=== PATIENT | male | born 1935 | race Caucasian/White ===

== ENCOUNTER 2016-10-18 09:10 | Outpatient (CLI) | payer MEDICARE, OTHER | END 2016-10-18 09:11 | disposition home or self-care (01) | DX: I48.0 Paroxysmal atrial fibrillation (principal); I51.7 Cardiomegaly; I25.2 Old myocardial infarction; I10 Essential (primary) hypertension; E78.5 Hyperlipidemia, unspecified ==

== ENCOUNTER 2016-10-18 10:14 | Outpatient (CLI) | payer MEDICARE, OTHER | END 2016-10-18 10:15 | disposition home or self-care (01) | DX: Z00.8 Encounter for other general examination (principal) ==

== ENCOUNTER 2016-11-01 09:27 | Outpatient (CLI) | payer MEDICARE, OTHER | END 2016-11-01 09:28 | disposition home or self-care (01) | DX: I48.91 Unspecified atrial fibrillation (principal); Z79.01 Long term (current) use of anticoagulants ==

== ENCOUNTER 2016-11-29 09:16 | Outpatient (CLI) | payer MEDICARE, OTHER | END 2016-11-29 09:17 | disposition home or self-care (01) | DX: I48.91 Unspecified atrial fibrillation (principal); Z79.01 Long term (current) use of anticoagulants ==

== ENCOUNTER 2016-12-27 08:57 | Outpatient (CLI) | payer MEDICARE, OTHER | END 2016-12-27 08:58 | disposition home or self-care (01) | DX: I48.91 Unspecified atrial fibrillation (principal); Z79.01 Long term (current) use of anticoagulants ==

== ENCOUNTER 2017-01-24 11:46 | Outpatient (CLI) | payer MEDICARE, OTHER | END 2017-01-24 11:47 | disposition home or self-care (01) | DX: I48.91 Unspecified atrial fibrillation (principal); Z79.01 Long term (current) use of anticoagulants ==

== ENCOUNTER 2017-02-07 08:51 | Outpatient (CLI) | payer MEDICARE, OTHER | END 2017-02-07 08:52 | disposition home or self-care (01) | LOC: LAB 08:51 | PROVIDERS: ATTEND Internal Medicine | DX: I48.91 Unspecified atrial fibrillation (principal); Z79.01 Long term (current) use of anticoagulants | CPT/HCPCS: 85610 ==

== ENCOUNTER 2017-02-21 10:17 | Outpatient (CLI) | payer MEDICARE, OTHER | END 2017-02-21 10:18 | disposition home or self-care (01) | LOC: LAB 10:17 | PROVIDERS: ATTEND Internal Medicine | DX: I48.91 Unspecified atrial fibrillation (principal) | CPT/HCPCS: 85610 ==

== ENCOUNTER 2017-03-02 09:12 | Outpatient (CLI) | payer MEDICARE, OTHER ==
[2017-03-02 10:54] LABS: PSA TOTAL 4.61 ng/mL (0.000-2.000)
== END 2017-03-02 09:13 | disposition home or self-care (01) ==
LOC: LAB 09:12
PROVIDERS: ATTEND Urology
DX: I48.91 Unspecified atrial fibrillation (principal); R39.11 Hesitancy of micturition; C79.51 Secondary malignant neoplasm of bone; R33.9 Retention of urine, unspecified
CPT/HCPCS: 36415; 84153; 84403; 85610

== ENCOUNTER 2017-03-09 09:05 | Outpatient (CLI) | payer MEDICARE, OTHER | END 2017-03-09 09:06 | disposition home or self-care (01) | LOC: LAB 09:05 | PROVIDERS: ATTEND Internal Medicine | DX: I48.91 Unspecified atrial fibrillation (principal) | CPT/HCPCS: 85610 ==

== ENCOUNTER 2017-03-16 08:56 | Outpatient (CLI) | payer MEDICARE, OTHER | END 2017-03-16 08:57 | disposition home or self-care (01) | LOC: LAB 08:56 | PROVIDERS: ATTEND Internal Medicine | DX: I48.91 Unspecified atrial fibrillation (principal) | CPT/HCPCS: 85610 ==

== ENCOUNTER 2017-03-28 08:53 | Outpatient (CLI) | payer MEDICARE, OTHER | END 2017-03-28 08:54 | disposition home or self-care (01) | DX: E03.9 Hypothyroidism, unspecified (principal) ==

== ENCOUNTER 2017-03-30 09:26 | Outpatient (CLI) | payer MEDICARE, OTHER | END 2017-03-30 09:27 | disposition home or self-care (01) | LOC: LAB 09:26 | PROVIDERS: ATTEND Internal Medicine | DX: I48.91 Unspecified atrial fibrillation (principal) | CPT/HCPCS: 85610 ==

== ENCOUNTER 2017-04-14 10:47 | Outpatient (CLI) | payer MEDICARE, OTHER ==
[2017-04-14] MEDS ORDERED: IOPAMIDOL-300 100 ML VIAL IVP ONE (12:16)
[2017-04-14] MEDS ORDERED: IOPAMIDOL-300 50 ML VIAL PO ONE (12:16)
--- NOTE | 2017-04-14 12:39 | CT Report ---
CT CHEST WITH CONTRAST: 04/14/2017 CLINICAL INDICATION: Metastatic prostate cancer. TECHNIQUE: Axial CT images of the chest were obtained with 100 mL Isovue-[address] intravenously. No prev ious CT is available for comparison. FINDINGS: The heart and great vessels are unremarkable. No hilar or mediastinal lymphadenopathy is seen. The lungs demonstrate mild peripheral fibrosis. No suspicious pulmonary nodule or mass lesion is seen. No effusion or pneumothorax is present. Osseous structures demonstrate degenerative mendieta es. Bone scan would be more sensitive for osseous metastatic disease. IMPRESSION: PERIPHERAL FIBROSIS IN THE LUNGS. NO EVIDENCE OF THORACIC METASTATIC DISEASE. In accordance with CT protocol optimization, one or more of the following dose reduction techniques w ere utilized for this exam: automated exposure control, adjustment of mA and/or KV based on patient size, or use of iterative reconstructive technique. JOB #: [id number] EXT JOB #:[id number]
--- NOTE | 2017-04-14 12:42 | CT Report ---
CT ABDOMEN AND PELVIS WITH CONTRAST: 04/14/2017 CLINICAL INDICATION: Metastatic prostate cancer. TECHNIQUE: Axial CT images of the abdomen and pelvis were obtained with 100 mL Isovue-300 intravenou sly as well as oral contrast. No previous CT is available for comparison. FINDINGS: ABDOMEN: The liver demonstrates a tiny cyst in the right lobe. The spleen, pancreas, kidneys and ad renal glands are unremarkable. No bowel dilatation, free gas, or free fluid is present. No abdomina l adenopathy is present. The gallbladder is not dilated. PELVIS: The pelvic organs appear unremarkable. No pelvic adenopathy or free fluid is present. Osseous structures demonstrate degenerative changes. IMPRESSION: NO DEFINITE EVIDENCE OF METASTATIC DISEASE. In accordance with CT protocol optimization, one or more of the following dose reduction techniques w ere utilized for this exam: automated exposure control, adjustment of mA and/or KV based on patient size, or use of iterative reconstructive technique. JOB #: [id number] EXT JOB #:[id number]
--- NOTE | 2017-04-14 15:56 | Nuclear Medicine Prelim Report ---
Exam: NM Bone Whole Body IMPRESSION: No convincing scintigraphic evidence of skeletal metastatic disease. [facility] SITE ID: [id number]
--- NOTE | 2017-04-14 15:59 | Nuclear Medicine Report ---
EXAM: BONE SCAN EXAM DATE: 04/14/2017 01:22 PM. CLINICAL HISTORY: Metastatic prostate cancer. COMPARISON: Abdomen/pelvis CT, same day. TECHNIQUE: Following the intravenous administration of 30 mCi of technetium 99m MDP and an appropriat e delay, a whole-body scan was performed in anterior and posterior projections. Site-specific spot vi ews of the region of interest were obtained in various projections. FINDINGS: Exam Quality: Normal overall osseous radiotracer uptake. Physiological tracer uptake in bilateral col lecting systems. Skull: No focal uptake. Thorax: No focal lesions in ribs or sternum. Pelvis: There is increased uptake corresponding with enthesopathy at the superior aspect of the left greater trochanter. A right hip prosthesis is present. Spine: There is intensely increased radiotracer uptake corresponding to the region of the left L5-S1 facet. There is a mild degree of increased uptake corresponding with endplate osteophytes in the thor acic and lumbar spine. Other: There is increased uptake in the left knee and left midfoot, typical of degenerative etiology. IMPRESSION: No convincing scintigraphic evidence of skeletal metastatic disease. [facility] Referring Provider Line: [phone] SITE ID: [id number]
== END 2017-04-14 10:48 | disposition home or self-care (01) ==
LOC: DI 10:47
PROVIDERS: ATTEND Internal Medicine Hematology & Oncology
DX: C61 Malignant neoplasm of prostate (principal); J84.10 Pulmonary fibrosis, unspecified
CPT/HCPCS: 71260; 74177; 78306; A9503; Q9967

== ENCOUNTER 2017-04-27 09:12 | Outpatient (CLI) | payer MEDICARE, OTHER | END 2017-04-27 09:13 | disposition home or self-care (01) | LOC: LAB 09:12 | PROVIDERS: ATTEND Internal Medicine | DX: I48.91 Unspecified atrial fibrillation (principal) | CPT/HCPCS: 85610 ==

== ENCOUNTER 2017-05-16 09:52 | Outpatient (CLI) | payer MEDICARE, OTHER | END 2017-05-16 09:53 | disposition home or self-care (01) | LOC: LAB.R 09:52 | PROVIDERS: ATTEND Nurse Practitioner Primary Care | DX: Z79.899 Other long term (current) drug therapy (principal) | CPT/HCPCS: 80162 ==

== ENCOUNTER 2017-05-16 10:17 | Outpatient (CLI) | payer MEDICARE, OTHER ==
--- NOTE | 2017-05-16 17:08 | XRAY Report ---
THREE VIEW LEFT KNEE: 05/16/2017 CLINICAL INDICATION: Pain. Frontal, lateral, sunrise views of the left knee demonstrate moderate osteoarthritis, worse in the la teral femorotibial compartment. There is no evidence of acute fracture. A ligament staple is noted in the medial femoral condyle. IMPRESSION: MODERATE OSTEOARTHRITIS. JOB #: [id number] EXT JOB #:[id number]
== END 2017-05-16 10:18 | disposition home or self-care (01) ==
LOC: DI 10:17
PROVIDERS: ATTEND Nurse Practitioner Primary Care
DX: M25.562 Pain in left knee (principal); M17.12 Unilateral primary osteoarthritis, left knee; Z79.899 Other long term (current) drug therapy
CPT/HCPCS: 80162

== ENCOUNTER 2017-05-23 09:40 | Outpatient (CLI) | payer MEDICARE, OTHER ==
--- NOTE | 2017-05-23 16:09 | MRI Report ---
EXAM: LEFT KNEE MRI WITHOUT CONTRAST EXAM DATE: 05/23/2017 10:45 AM. CLINICAL HISTORY: Knee joint pain and instability of left knee. COMPARISON: Left knee radiography from 05/16/2017. TECHNIQUE: Multiplanar, multisequence T1-weighted and fluid-sensitive sequences of the knee without c ontrast. Other: None. FINDINGS: Bones and Articular Cartilage: Artifact caused by the metallic staple within the medial femoral condy le. Osteophytes at the femoral condyles, tibial plateau, and patella. No acute fracture or bone lesio ns. Possible grade 2-3 chondromalacia at the posterolateral weightbearing aspect of the medial femora l condyle. Grade 3-4 chondromalacia at the central and posterior weightbearing aspects of the lateral femoral condyle. Focal full-thickness articular cartilage fissure at the lateral tibial plateau. Foc al grade 3-4 chondromalacia at the lateral aspect of the lateral tibial plateau. Grade 3-4 chondromal acia at the median ridge of the patella. Grade 3-4 chondromalacia and subchondral osteophytes at the femoral trochlear groove. Grade 3-4 chondromalacia at the lateral trochlear facet. Medial Meniscus: Horizontal tear at the posterior horn. Lateral Meniscus: The anterior horn is almost completely absent which may be due to severe degenerati on. The lateral meniscal body is extruded laterally from the lateral joint compartment. There is a ho rizontal tear and degeneration at the posterior horn. Cruciate Ligaments: The anterior and posterior cruciate ligaments are intact. Collateral Ligaments: The medial collateral and lateral collateral ligamentous structures are intact. Tendons: The quadriceps, patellar, semimembranosus, and popliteus tendons are unremarkable. Musculature: Severe focal fatty atrophy within the medial head of the gastrocnemius muscle. Other: Small joint effusion. Small to moderate-sized Jordan's cyst. There is an approximately 1.9 x 0. 4 x 1.2 cm calcified body within the posterosuperior aspect of the lateral joint compartment. The med ial and lateral retinacula are intact. Subcutaneous edema at the anterior aspect of the knee. IMPRESSION: 1. Tricompartmental osteoarthritis. 2. Horizontal tear of the posterior horn medial meniscus. 3. Near complete absence of the anterior horn lateral meniscus which may be due to severe degeneratio n. The lateral meniscal body is extruded laterally from the lateral joint compartment. There is a hor izontal tear and degeneration at the posterior horn lateral meniscus. 4. Small joint effusion. Small to moderate-sized Jordan's cyst. 5. Calcified loose body within the posterosuperior aspect of the lateral joint compartment. [facility] MUSCULOSKELETAL RADIOLOGY SECTION Referring Provider Line: [phone] SITE ID: [id number]
== END 2017-05-23 09:41 | disposition home or self-care (01) ==
LOC: DI 09:40
PROVIDERS: ATTEND Nurse Practitioner Primary Care
DX: M25.562 Pain in left knee (principal); M25.362 Other instability, left knee; M17.12 Unilateral primary osteoarthritis, left knee; S83.242A Other tear of medial meniscus, current injury, left knee, initial encounter

== ENCOUNTER 2017-05-30 15:23 | Outpatient (CLI) | payer MEDICARE, OTHER | END 2017-05-30 15:24 | disposition home or self-care (01) | LOC: LAB 15:23 | PROVIDERS: ATTEND Internal Medicine | DX: I48.91 Unspecified atrial fibrillation (principal); Z79.01 Long term (current) use of anticoagulants | CPT/HCPCS: 85610 ==

== ENCOUNTER 2017-06-27 09:31 | Outpatient (CLI) | payer MEDICARE, OTHER | END 2017-06-27 09:32 | disposition home or self-care (01) | LOC: LAB 09:31 | PROVIDERS: ATTEND Internal Medicine | DX: I48.91 Unspecified atrial fibrillation (principal); Z79.01 Long term (current) use of anticoagulants | CPT/HCPCS: 85610 ==

== ENCOUNTER 2017-07-11 09:15 | Outpatient (CLI) | payer MEDICARE, OTHER | END 2017-07-11 09:16 | disposition home or self-care (01) | LOC: LAB 09:15 | PROVIDERS: ATTEND Internal Medicine | DX: I48.91 Unspecified atrial fibrillation (principal); Z79.01 Long term (current) use of anticoagulants | CPT/HCPCS: 85610 ==

== ENCOUNTER 2017-08-15 08:59 | Outpatient (CLI) | payer MEDICARE, OTHER | END 2017-08-15 09:00 | disposition home or self-care (01) | LOC: LAB 08:59 | PROVIDERS: ATTEND Internal Medicine | DX: I48.91 Unspecified atrial fibrillation (principal); Z79.01 Long term (current) use of anticoagulants | CPT/HCPCS: 85610 ==

== ENCOUNTER 2017-08-29 09:14 | Outpatient (CLI) | payer MEDICARE, OTHER | END 2017-08-29 09:15 | disposition home or self-care (01) | LOC: LAB 09:14 | PROVIDERS: ATTEND Internal Medicine | DX: I48.91 Unspecified atrial fibrillation (principal); Z79.01 Long term (current) use of anticoagulants | CPT/HCPCS: 85610 ==

== ENCOUNTER 2017-09-13 08:43 | Outpatient (CLI) | payer MEDICARE, OTHER | END 2017-09-13 08:44 | disposition home or self-care (01) | LOC: LAB 08:43 | PROVIDERS: ATTEND Internal Medicine | DX: I48.91 Unspecified atrial fibrillation (principal); Z79.01 Long term (current) use of anticoagulants | CPT/HCPCS: 85610 ==

== ENCOUNTER 2017-10-10 08:50 | Outpatient (CLI) | payer MEDICARE, OTHER | END 2017-10-10 08:51 | disposition home or self-care (01) | LOC: LAB 08:50 | PROVIDERS: ATTEND Internal Medicine | DX: I48.91 Unspecified atrial fibrillation (principal); Z79.01 Long term (current) use of anticoagulants | CPT/HCPCS: 85610 ==

== ENCOUNTER 2017-10-24 09:17 | Outpatient (CLI) | payer MEDICARE, OTHER | END 2017-10-24 09:18 | disposition home or self-care (01) | LOC: LAB 09:17 | PROVIDERS: ATTEND Internal Medicine | DX: I48.91 Unspecified atrial fibrillation (principal); Z79.01 Long term (current) use of anticoagulants | CPT/HCPCS: 85610 ==

== ENCOUNTER 2017-11-07 09:35 | Outpatient (CLI) | payer MEDICARE, OTHER | END 2017-11-07 09:36 | disposition home or self-care (01) | LOC: LAB 09:35 | PROVIDERS: ATTEND Internal Medicine | DX: I48.91 Unspecified atrial fibrillation (principal); Z79.01 Long term (current) use of anticoagulants | CPT/HCPCS: 85610 ==

== ENCOUNTER 2017-11-21 08:59 | Outpatient (CLI) | payer MEDICARE, OTHER | END 2017-11-21 09:00 | disposition home or self-care (01) | LOC: LAB 08:59 | PROVIDERS: ATTEND Internal Medicine | DX: I48.91 Unspecified atrial fibrillation (principal); Z79.01 Long term (current) use of anticoagulants | CPT/HCPCS: 85610 ==

== ENCOUNTER 2017-11-30 12:04 | Outpatient (CLI) | payer MEDICARE, OTHER ==
[2017-11-30 16:32] LABS: BILIRUBIN,URINE NEGATIVE (NEGATIVE); GLUCOSE, URINE (UA) NEGATIVE (NEGATIVE); KETONES,URINE (UA) NEGATIVE (NEGATIVE); LEUKOCYTE ESTERASE, URINE NEGATIVE (NEGATIVE); NITRITE,URINE NEGATIVE (NEGATIVE); OCCULT BLOOD,URINE NEGATIVE (NEGATIVE); PROTEIN,URINE NEGATIVE (NEGATIVE); UROBILINOGEN,URINE 1 (NORMAL) E.U./dL (NORMAL)
[2017-11-30 16:35] LABS: CLARITY,URINE CLEAR (CLEAR)
== END 2017-11-30 12:05 | disposition home or self-care (01) ==
LOC: LAB.R 12:04
PROVIDERS: ATTEND Physician Assistant Medical
DX: I95.1 Orthostatic hypotension (principal); R00.0 Tachycardia, unspecified; C61 Malignant neoplasm of prostate
CPT/HCPCS: 81001; 81003; 87086

== ENCOUNTER 2017-11-30 12:05 | Outpatient (CLI) | payer MEDICARE, OTHER ==
[2017-11-30 16:22] LABS: BASOPHILS # (AUTO) 0.1 10^3/uL (0.0-0.1); BASOPHILS % (AUTO) 0.9 %; EOSINOPHILS # (AUTO) 0.2 10^3/uL (0.0-0.7); EOSINOPHILS % (AUTO) 3.8 %; HGB - HEMOGLOBIN 13.4 g/dL (14.0-18.0); LYMPHOCYTES # (AUTO) 1.9 10^3/uL (1.5-3.5); MEAN CORPUSCULAR HEMOGLOBIN 29.4 pg (27.0-31.0); MEAN CORPUSCULAR HGB CONC 32.8 g/dL (32.0-36.0); MEAN CORPUSCULAR VOLUME 89.7 fL (80.0-94.0); MEAN PLATELET VOLUME 8.2 fL (7.4-11.4); MONOCYTES # (AUTO) 0.6 10^3/uL (0.0-1.0); MONOCYTES % (AUTO) 10.4 %; NEUTROPHILS % (AUTO) 51.9 %; PLT - PLATELET COUNT 151 10^3/uL (130-450); RED BLOOD COUNT 4.56 10^6/uL (4.70-6.10); RED CELL DISTRIBUTION WIDTH 14.1 % (12.0-15.0); WHITE BLOOD COUNT 5.7 x10^3/uL (4.8-10.8)
[2017-11-30 16:27] LABS: ALBUMIN 4.1 g/dL (3.2-5.5); ALBUMIN/GLOBULIN RATIO 1.2 (1.0-2.2); BILIRUBIN,TOTAL 0.6 mg/dL (0.2-1.0); CALCIUM 9.7 mg/dL (8.5-10.3); CREATININE 0.8 mg/dL (0.6-1.2); TOTAL PROTEIN 7.4 g/dL (6.7-8.2)
== END 2017-11-30 12:06 | disposition home or self-care (01) ==
LOC: LAB.R 12:05
PROVIDERS: ATTEND Physician Assistant Medical
DX: E03.9 Hypothyroidism, unspecified (principal); R00.0 Tachycardia, unspecified; Z79.899 Other long term (current) drug therapy; I95.1 Orthostatic hypotension; C61 Malignant neoplasm of prostate
CPT/HCPCS: 80053; 81003; 84443; 85025

== ENCOUNTER 2017-12-08 09:03 | Outpatient (CLI) | payer MEDICARE, OTHER | END 2017-12-08 09:04 | disposition home or self-care (01) | LOC: LAB 09:03 | PROVIDERS: ATTEND Internal Medicine | DX: I48.91 Unspecified atrial fibrillation (principal); Z79.01 Long term (current) use of anticoagulants | CPT/HCPCS: 85610 ==

== ENCOUNTER 2017-12-20 10:01 | Outpatient (CLI) | payer MEDICARE, OTHER | END 2017-12-20 10:02 | disposition home or self-care (01) | LOC: LAB 10:01 | PROVIDERS: ATTEND Internal Medicine | DX: I48.91 Unspecified atrial fibrillation (principal); Z79.01 Long term (current) use of anticoagulants | CPT/HCPCS: 85610 ==

== ENCOUNTER 2018-01-04 09:19 | Outpatient (CLI) | payer MEDICARE, OTHER | END 2018-01-04 09:20 | disposition home or self-care (01) | LOC: LAB 09:19 | PROVIDERS: ATTEND Internal Medicine | DX: I48.91 Unspecified atrial fibrillation (principal); Z79.01 Long term (current) use of anticoagulants | CPT/HCPCS: 85610 ==

== ENCOUNTER 2018-01-18 09:15 | Outpatient (CLI) | payer MEDICARE, OTHER | END 2018-01-18 09:16 | disposition home or self-care (01) | LOC: LAB 09:15 | PROVIDERS: ATTEND Internal Medicine | DX: I48.91 Unspecified atrial fibrillation (principal); Z79.01 Long term (current) use of anticoagulants | CPT/HCPCS: 85610 ==

== ENCOUNTER 2018-02-05 10:27 | Outpatient (CLI) | payer MEDICARE, OTHER | END 2018-02-05 10:28 | disposition home or self-care (01) | LOC: LAB 10:27 | PROVIDERS: ATTEND Internal Medicine | DX: I48.91 Unspecified atrial fibrillation (principal); Z79.01 Long term (current) use of anticoagulants | CPT/HCPCS: 85610 ==

== ENCOUNTER 2018-02-20 09:51 | Outpatient (CLI) | payer MEDICARE, OTHER | END 2018-02-20 09:52 | disposition home or self-care (01) | LOC: LAB 09:51 | PROVIDERS: ATTEND Internal Medicine | DX: I48.91 Unspecified atrial fibrillation (principal); Z79.01 Long term (current) use of anticoagulants | CPT/HCPCS: 85610 ==

== ENCOUNTER 2018-03-06 09:18 | Outpatient (CLI) | payer MEDICARE, OTHER | END 2018-03-06 09:19 | disposition home or self-care (01) | LOC: LAB 09:18 | PROVIDERS: ATTEND Internal Medicine | DX: I48.91 Unspecified atrial fibrillation (principal); Z79.01 Long term (current) use of anticoagulants | CPT/HCPCS: 85610 ==

== ENCOUNTER 2018-03-20 08:51 | Outpatient (CLI) | payer MEDICARE, OTHER | END 2018-03-20 08:52 | disposition home or self-care (01) | LOC: LAB 08:51 | PROVIDERS: ATTEND Internal Medicine | DX: I48.91 Unspecified atrial fibrillation (principal); Z79.01 Long term (current) use of anticoagulants | CPT/HCPCS: 85610 ==

== ENCOUNTER 2018-04-04 09:44 | Outpatient (CLI) | payer MEDICARE, OTHER ==
[2018-04-04 10:06] LABS: CALCIUM 9.9 mg/dL (8.5-10.3)
== END 2018-04-04 09:45 | disposition home or self-care (01) ==
LOC: LAB 09:44
PROVIDERS: ATTEND Internal Medicine Cardiovascular Disease
DX: I25.5 Ischemic cardiomyopathy (principal)
CPT/HCPCS: 36415; 80048

== ENCOUNTER 2018-04-17 08:52 | Outpatient (CLI) | payer MEDICARE, OTHER | END 2018-04-17 08:53 | disposition home or self-care (01) | LOC: LAB 08:52 | PROVIDERS: ATTEND Internal Medicine | DX: I48.91 Unspecified atrial fibrillation (principal); Z79.01 Long term (current) use of anticoagulants | CPT/HCPCS: 85610 ==

== ENCOUNTER 2018-04-19 08:00 | Outpatient (CLI) | payer MEDICARE, OTHER ==
[2018-04-19 16:22] LABS: CHOL/HDL RATIO 1.9 (<5.0); CHOLESTEROL 153 mg/dL; HDL CHOLESTEROL 80 mg/dL; LDL CHOLESTEROL,CALCULATED 58 mg/dL; LDL/HDL RATIO 0.7 (<3.6); VLDL CHOLESTEROL 15 mg/dL
[2018-04-19 16:32] LABS: HB2 TOTAL 15.1 g/dL; HEMOGLOBIN A1C 0.57 g/dL; HEMOGLOBIN A1C % 5.6 % (4.6-6.2)
== END 2018-04-19 08:01 | disposition home or self-care (01) ==
LOC: LAB.R 08:00
PROVIDERS: ATTEND Internal Medicine
DX: R73.9 Hyperglycemia, unspecified (principal); E03.9 Hypothyroidism, unspecified; E78.5 Hyperlipidemia, unspecified
CPT/HCPCS: 80061; 83036; 83721; 84443

== ENCOUNTER 2018-04-27 08:41 | Outpatient (CLI) | payer MEDICARE, OTHER ==
--- NOTE | 2018-04-27 15:11 | Nuclear Medicine Report ---
Procedure Date: 04/27/2018 Accession Number: [id number] / [id number] Procedure: NM - Bone Whole Body CPT Code: FULL RESULT: EXAM: BONE SCAN EXAM DATE: 04/27/2018 01:08 PM. CLINICAL HISTORY: PROSTATE CA WITH BONE METS. COMPARISON: 04/14/2017. TECHNIQUE: Following the intravenous administration of 32.1 mCi of technetium 99m MDP and an appropriate delay, a whole-body scan was performed in anterior and posterior projections. FINDINGS: Exam Quality: Normal overall osseous radiotracer uptake. Physiological tracer uptake in bilateral collecting systems. Skull: No focal uptake. Thorax: No focal lesions in ribs or sternum. Pelvis: No focal lesions. There is a right hip prosthesis. Stable mild uptake corresponding with enthesopathy near the left greater trochanter. Spine: There are stable foci of increased uptake along the margins of the thoracic and lumbar spine which correspond with degenerative changes on CT. Extremities: There is increased uptake at the base of thumbs bilaterally, in the left midfoot, and in the left knee. IMPRESSION: Stable exam, no definite scintigraphic evidence of skeletal metastatic disease. [facility]
== END 2018-04-27 08:42 | disposition home or self-care (01) ==
LOC: DI 08:41
PROVIDERS: ATTEND Internal Medicine Hematology & Oncology
DX: C61 Malignant neoplasm of prostate (principal); C79.51 Secondary malignant neoplasm of bone
CPT/HCPCS: 78306

== ENCOUNTER 2018-05-01 11:42 | Outpatient (CLI) | payer MEDICARE, OTHER | END 2018-05-01 11:43 | disposition home or self-care (01) | LOC: LAB 11:42 | PROVIDERS: ATTEND Internal Medicine | DX: I48.91 Unspecified atrial fibrillation (principal); Z79.01 Long term (current) use of anticoagulants | CPT/HCPCS: 85610 ==

== ENCOUNTER 2018-05-15 09:02 | Outpatient (CLI) | payer MEDICARE, OTHER | END 2018-05-15 09:03 | disposition home or self-care (01) | LOC: LAB 09:02 | PROVIDERS: ATTEND Internal Medicine | DX: I48.91 Unspecified atrial fibrillation (principal); Z79.01 Long term (current) use of anticoagulants | CPT/HCPCS: 85610 ==

== ENCOUNTER 2018-06-12 09:20 | Outpatient (CLI) | payer MEDICARE, OTHER | END 2018-06-12 09:21 | disposition home or self-care (01) | LOC: LAB 09:20 | PROVIDERS: ATTEND Internal Medicine | DX: I48.91 Unspecified atrial fibrillation (principal); Z79.01 Long term (current) use of anticoagulants | CPT/HCPCS: 85610 ==

== ENCOUNTER 2018-06-26 09:43 | Outpatient (CLI) | payer MEDICARE, OTHER | END 2018-06-26 09:44 | disposition home or self-care (01) | LOC: LAB 09:43 | PROVIDERS: ATTEND Internal Medicine | DX: I48.91 Unspecified atrial fibrillation (principal); Z79.01 Long term (current) use of anticoagulants | CPT/HCPCS: 85610 ==

== ENCOUNTER 2018-07-02 08:00 | Outpatient (CLI) | payer MEDICARE, OTHER ==
[2018-07-02 17:18] LABS: BASOPHILS # (AUTO) 0.1 10^3/uL (0.0-0.1); EOSINOPHILS # (AUTO) 0.2 10^3/uL (0.0-0.7); EOSINOPHILS % (AUTO) 3.9 %; HGB - HEMOGLOBIN 13.2 g/dL (14.0-18.0); LYMPHOCYTES # (AUTO) 1.5 10^3/uL (1.5-3.5); MEAN CORPUSCULAR HEMOGLOBIN 30.6 pg (27.0-31.0); MEAN CORPUSCULAR HGB CONC 34.2 g/dL (32.0-36.0); MEAN CORPUSCULAR VOLUME 89.4 fL (80.0-94.0); MEAN PLATELET VOLUME 7.4 fL (7.4-11.4); MONOCYTES # (AUTO) 0.7 10^3/uL (0.0-1.0); MONOCYTES % (AUTO) 10.4 %; NEUTROPHILS # (AUTO) 3.9 10^3/uL (1.5-6.6); NEUTROPHILS % (AUTO) 61.7 %; PLT - PLATELET COUNT 187 10^3/uL (130-450); RED BLOOD COUNT 4.32 10^6/uL (4.70-6.10); RED CELL DISTRIBUTION WIDTH 14.8 % (12.0-15.0); WHITE BLOOD COUNT 6.3 x10^3/uL (4.8-10.8)
[2018-07-02 17:27] LABS: ALBUMIN 4.2 g/dL (3.2-5.5); ALBUMIN/GLOBULIN RATIO 1.3 (1.0-2.2); BILIRUBIN,TOTAL 0.6 mg/dL (0.2-1.0); TOTAL PROTEIN 7.5 g/dL (6.7-8.2)
== END 2018-07-02 08:01 | disposition home or self-care (01) ==
LOC: LAB.R 08:00
PROVIDERS: ATTEND Nurse Practitioner Primary Care
DX: R06.02 Shortness of breath (principal); Z79.899 Other long term (current) drug therapy
CPT/HCPCS: 80053; 83880; 85025

== ENCOUNTER 2018-07-02 14:57 | Outpatient (CLI) | payer MEDICARE, OTHER ==
--- NOTE | 2018-07-02 16:08 | XRAY Report ---
Reason: SHORTNESS OF BREATH Procedure Date: 07/02/2018 Accession Number: [id number] / [id number] Procedure: XR - Chest 2 View X-Ray CPT Code: 35652 FULL RESULT: EXAM: CHEST RADIOGRAPHY EXAM DATE: 07/02/2018 03:21 PM. CLINICAL HISTORY: SHORTNESS OF BREATH. COMPARISON: None. TECHNIQUE: 2 views. FINDINGS: Lungs/Pleura: No focal opacities evident. No pleural effusion. No pneumothorax. Normal volumes. Mediastinum: Heart and mediastinal contours are unremarkable. Other: Degenerative change in the spine. IMPRESSION: No acute findings 2-view chest radiography. [facility]
--- NOTE | 2018-07-02 16:47 | XRAY Report ---
Reason: RIB PAIN, LEFT SIDED Procedure Date: 07/02/2018 Accession Number: [id number] / [id number] Procedure: XR - Ribs 2 View LT CPT Code: FULL RESULT: EXAM: LEFT RIB RADIOGRAPHY EXAM DATE: 07/02/2018 03:21 PM. CLINICAL HISTORY: RIB PAIN, LEFT SIDED. COMPARISON: Chest x-ray the same day. TECHNIQUE: 2 views. FINDINGS: Bones: No fracture or bone lesion. Lungs: No focal opacities evident. No pneumothorax or pleural effusions. Mediastinum: Heart and cardiomediastinal contours are unremarkable. Other: None. IMPRESSION: Unremarkable left rib radiography. [facility]
== END 2018-07-02 14:58 | disposition home or self-care (01) ==
LOC: DI 14:57
PROVIDERS: ATTEND Internal Medicine
DX: R06.02 Shortness of breath (principal); R07.81 Pleurodynia; Z79.899 Other long term (current) drug therapy
CPT/HCPCS: 71046; 80053; 83880; 85025

== ENCOUNTER 2018-07-03 09:22 | Emergency (ER) | payer MEDICARE, OTHER ==
[2018-07-03] MEDS ORDERED: LIDOCAINE PATCH 5% TOP PRN (09:41)
[2018-07-03] MEDS ORDERED: SODIUM CHLORIDE 0.9% 500 ML IV ONE (09:41)
--- NOTE | 2018-07-03 09:45 | ED Physician Documentation ---
History of Present Illness - Stated complaint Stated Complaint: IRREGULAR HEARTBEAT - Additonal information Additional information: hx from pt and and EMR 82 male hx int a fib on coumadin this AM had palp and felt poorly took VS and his HR was as fast at 130 and his SBP was as low as 77 no CP or SOA no NVD eating drinking normally no new leg swelling saw PMD yesterday for rib pain after a fall several weeks ago and had xrays (neg) and his metoprolol dose was dec (but he has not implemented that change yet) now he is feeling better and is in NSR on tele Review of Systems Constitutional: reports: Fatigue. denies: Fever Cardiac: reports: Palpitations. denies: Chest pain / pressure Respiratory: denies: Dyspnea, Cough GI: denies: Abdominal Pain, Nausea, Vomiting Musculoskeletal: reports: Back pain (posterior L ribs - had neg xrays yesterday) Neurologic: reports: Generalized weakness Endocrine: reports: Easy bruising / bleeding Immunocompromised: denies: Immunocompromised PD PAST MEDICAL HISTORY - Past Medical History Cardiovascular: [place], Atrial fibrillation Respiratory: None GI: None : None HEENT: Other Psych: Depression Musculoskeletal: Osteoarthritis, Fatigue - Past Surgical History Past Surgical History: Yes Ortho: Hip replacement Cardiovascular: Coronary stent Derm: Skin cancer surgery - Present Medications Home Medications: Ambulatory Orders Medication Instructions Recorded Confirmed Metoprolol Succinate 50 mg PO DAILY 03/29/13 05/08/18 Rosuvastatin Calcium [Crestor] 20 mg PO DAILY 03/29/13 05/08/18 Warfarin [Coumadin] 2.5 mg PO DAILY 03/29/13 05/08/18 Levothyroxine [Synthroid] 25 mcg PO QDAC 05/10/16 05/08/18 buPROPion HCl [Bupropion HCl] 75 mg PO BID 05/10/16 05/08/18 Leuprolide Acetate [Lupron Depot] 3.75 mg IM Q3M 01/09/18 05/08/18 Magnesium Oxide [Magnesium] 1 cap PO DAILY 01/09/18 05/08/18 Lidocaine Patch 5% [Lidoderm Patch] 1 each TOP DAILY PRN #10 patch 07/03/18 - Allergies Allergies/Adverse Reactions: Allergies Allergy/AdvReac Type Severity Reaction Status Date / Time tamsulosin Allergy Dizziness Verified 07/03/18 09:45 clindamycin AdvReac Severe chest pain Verified 05/10/16 14:24 R side KAYLA Inhibitors AdvReac Intermediate unknown - Verified 05/10/16 14:24 appeared in his records - Social History Does the pt smoke?: No Smoking Status: Never smoker Does the pt drink ETOH?: Yes Does the pt have substance abuse?: No - Immunizations Immunizations are current?: Yes - POLST Patient has POLST: No PD ED PE NORMAL - Vitals Vital signs reviewed: Yes - General General: Alert and oriented X 3 - HEENT HEENT: Atraumatic - Neck Neck: Supple, no meningeal sign, No bony TTP - Cardiac Cardiac: RRR - Respiratory Respiratory: No respiratory distress, Clear bilaterally, Other (TTP mid to low posterior L ribs s bruise or crepitus, no CVA TTP) - Abdomen Abdomen: Soft, Non tender - Back Back: No CVA TTP - Derm Derm: Other (approx 2 X 3 cm lesion to ab wall - pt states not new and has derm appt pending to eval) - Extremities Extremities: No calf tenderness / cord, Other (mild joshua symm edema) - Neuro Neuro: Alert and oriented X 3 Eye Opening: Spontaneous Motor: Obeys Commands Verbal: Oriented GCS Score: 15 - Psych Psych: Normal mood Results - Vitals Vitals: Oxygen O2 Source Room air - EKG (time done) 0928 Rate: Rate (enter#) (89) Rhythm: NSR Intervals: Prolonged ND Ischemia: ST elevation c/w ischemia (but not new - no change from04/26/15), Q waves (anterior) Compare to prior EKG: Unchanged from prior EKG (04/26/15) PD MEDICAL DECISION MAKING - ED course ED course: back in NSR labs fine will dc road test with walker went well - HR < 100 BP > 100 will dc with family Departure - Departure Disposition: 01 Home, Self Care Clinical Impression: Atrial fibrillation Qualifiers: Atrial fibrillation type: paroxysmal Qualified Code(s): I48.0 - Paroxysmal atrial fibrillation Back contusion Qualifiers: Encounter type: initial encounter Laterality: left Qualified Code(s): S20.222A - Contusion of left back wall of thorax, initial encounter Condition: Good Instructions: ED Afib Follow-Up: Maximo Meyer MD [Primary Care Provider] - Prescriptions: Lidocaine Patch 5% [Lidoderm Patch] 1 each TOP DAILY PRN #10 patch PRN Reason: Pain Comments: The rib xrays from yesterday were fine - no fractures Your heart is back in a regular rhythm and your blood pressure is better Your labs were fine except your INR was a bit high at 3.8 - please have it rechecked this week Follow up with your PMD Return if worse
[2018-07-03 09:53] LABS: BASOPHILS # (AUTO) 0.1 10^3/uL (0.0-0.1); EOSINOPHILS # (AUTO) 0.3 10^3/uL (0.0-0.7); EOSINOPHILS % (AUTO) 4.2 %; HGB - HEMOGLOBIN 14.2 g/dL (14.0-18.0); LYMPHOCYTES # (AUTO) 1.8 10^3/uL (1.5-3.5); LYMPHOCYTES % (AUTO) 24.6 %; MEAN CORPUSCULAR HEMOGLOBIN 30.8 pg (27.0-31.0); MEAN CORPUSCULAR HGB CONC 34.2 g/dL (32.0-36.0); MEAN CORPUSCULAR VOLUME 89.9 fL (80.0-94.0); MEAN PLATELET VOLUME 7.1 fL (7.4-11.4); MONOCYTES # (AUTO) 0.7 10^3/uL (0.0-1.0); MONOCYTES % (AUTO) 9.3 %; NEUTROPHILS # (AUTO) 4.6 10^3/uL (1.5-6.6); NEUTROPHILS % (AUTO) 60.9 %; PLT - PLATELET COUNT 192 10^3/uL (130-450); RED BLOOD COUNT 4.63 10^6/uL (4.70-6.10); RED CELL DISTRIBUTION WIDTH 14.6 % (12.0-15.0); WHITE BLOOD COUNT 7.5 x10^3/uL (4.8-10.8)
[2018-07-03 09:56] LABS: INR 3.8 (0.8-1.2)
[2018-07-03 09:59] LABS: CALCIUM 10.1 mg/dL (8.5-10.3); CREATININE 1.1 mg/dL (0.6-1.2)
[2018-07-03 12:09] VITALS: BP 119/65
== END 2018-07-03 12:19 | disposition home or self-care (01) ==
LOC: ED 09:22
DX: I48.0 Paroxysmal atrial fibrillation (principal); S20.222A Contusion of left back wall of thorax, initial encounter; W19.XXXA Unspecified fall, initial encounter; R94.31 Abnormal electrocardiogram [ECG] [EKG]; I25.2 Old myocardial infarction; Z79.01 Long term (current) use of anticoagulants; Z96.649 Presence of unspecified artificial hip joint; Z95.5 Presence of coronary angioplasty implant and graft
CPT/HCPCS: 36415; 80048; 84484; 85025; 85610; 93005; 96360; 99283; 99284; A9270

== ENCOUNTER 2018-07-24 09:37 | Outpatient (CLI) | payer MEDICARE, OTHER | END 2018-07-24 09:38 | disposition home or self-care (01) | LOC: LAB 09:37 | PROVIDERS: ATTEND Internal Medicine | DX: I48.91 Unspecified atrial fibrillation (principal); Z79.01 Long term (current) use of anticoagulants | CPT/HCPCS: 85610 ==

== ENCOUNTER 2018-08-21 09:57 | Outpatient (CLI) | payer MEDICARE, OTHER | END 2018-08-21 09:58 | disposition home or self-care (01) | LOC: LAB 09:57 | PROVIDERS: ATTEND Internal Medicine | DX: I48.91 Unspecified atrial fibrillation (principal); Z79.01 Long term (current) use of anticoagulants | CPT/HCPCS: 85610 ==

== ENCOUNTER 2018-09-04 09:23 | Outpatient (CLI) | payer MEDICARE, OTHER | END 2018-09-04 09:24 | disposition home or self-care (01) | LOC: LAB 09:23 | PROVIDERS: ATTEND Internal Medicine | DX: I48.91 Unspecified atrial fibrillation (principal); Z79.01 Long term (current) use of anticoagulants | CPT/HCPCS: 85610 ==

== ENCOUNTER 2018-09-20 09:05 | Outpatient (CLI) | payer MEDICARE, OTHER | END 2018-09-20 09:06 | disposition home or self-care (01) | LOC: LAB 09:05 | PROVIDERS: ATTEND Internal Medicine | DX: I48.91 Unspecified atrial fibrillation (principal); Z79.01 Long term (current) use of anticoagulants | CPT/HCPCS: 85610 ==

== ENCOUNTER 2018-10-15 09:41 | Emergency (ER) | payer MEDICARE, OTHER ==
[2018-10-15 10:30] LABS: BASOPHILS % (AUTO) 0.7 %; EOSINOPHILS # (AUTO) 0.3 10^3/uL (0.0-0.7); EOSINOPHILS % (AUTO) 5.1 %; HGB - HEMOGLOBIN 12.8 g/dL (14.0-18.0); LYMPHOCYTES # (AUTO) 1.1 10^3/uL (1.5-3.5); LYMPHOCYTES % (AUTO) 16.9 %; MEAN CORPUSCULAR HEMOGLOBIN 30.2 pg (27.0-31.0); MEAN CORPUSCULAR HGB CONC 34.3 g/dL (32.0-36.0); MEAN CORPUSCULAR VOLUME 88.1 fL (80.0-94.0); MEAN PLATELET VOLUME 7.2 fL (7.4-11.4); MONOCYTES # (AUTO) 0.9 10^3/uL (0.0-1.0); MONOCYTES % (AUTO) 13.1 %; NEUTROPHILS # (AUTO) 4.3 10^3/uL (1.5-6.6); NEUTROPHILS % (AUTO) 64.2 %; PLT - PLATELET COUNT 162 10^3/uL (130-450); RED BLOOD COUNT 4.23 10^6/uL (4.70-6.10); WHITE BLOOD COUNT 6.7 x10^3/uL (4.8-10.8)
[2018-10-15 10:39] LABS: ALBUMIN 3.8 g/dL (3.2-5.5); BILIRUBIN,TOTAL 0.8 mg/dL (0.2-1.0); CALCIUM 9.8 mg/dL (8.5-10.3); TOTAL PROTEIN 7.6 g/dL (6.7-8.2)
--- NOTE | 2018-10-15 10:53 | XRAY Report ---
Reason: cough, congestion Procedure Date: 10/15/2018 Accession Number: [id number] / [id number] Procedure: XR - Chest 2 View X-Ray CPT Code: 05024 FULL RESULT: EXAM: CHEST RADIOGRAPHY EXAM DATE: 10/15/2018 10:36 AM. CLINICAL HISTORY: Cough, congestion. COMPARISON: CHEST 2 VIEW 07/02/2018 3:05 PM. TECHNIQUE: 2 views. FINDINGS: Exam limited by grid-layering artifact, low lung volumes and AP portable technique with suboptimal positioning. Lungs/Pleura: No focal opacities evident. No pleural effusion. No pneumothorax. Normal volumes. Mediastinum: Stable cardiomediastinal silhouette. Other: Stable mild anterior wedge deformities of mid thoracic vertebral bodies. IMPRESSION: No pneumonia is detected, limited exam. [facility]
[2018-10-15] MEDS ORDERED: IPRATROPIUM/ALBUTEROL 3 ML NEB INH STA (11:08)
--- NOTE | 2018-10-15 11:13 | ED Physician Documentation ---
PD HPI DYSPNEA - Stated complaint Stated Complaint: ELEVRATED HR/COLD SX - Chief complaint Chief Complaint: Cardiac - History obtained from History obtained from: Patient, Family - History of Present Illness Timing - onset: How many weeks ago (2) Timing - details: Gradual onset, Still present Worsened by: Coughing Associated symptoms: Cough Recently seen: Clinic (Was seen by Resident Services Coordinator 1 1/2 weeks ago.) - Additional information Additional information: The patient is an 83-year-old male who presents with nonproductive cough, rapid heart rate, and exertional shortness of breath. His symptoms have been getting gradually worse over the past 2 weeks. He denies fever, chest pain, nausea or vomiting. He was seen by his internal revenue service agent 1-and-a-1/2 weeks ago, and his metoprolol dose was decreased from 25 down to 12.5 mg daily because of low blood pressure. About 3 months ago his metoprolol dose was decreased from 50 mg to 25 mg daily because of low blood pressure. He has history of RI in 1996, and is status post coronary stent placement. Review of Systems Constitutional: reports: Fatigue. denies: Fever Ears: denies: Tinnitus/ringing Nose: denies: Congestion Throat: denies: Sore throat Cardiac: reports: Palpitations. denies: Chest pain / pressure Respiratory: reports: Dyspnea, Cough GI: denies: Abdominal Pain, Nausea, Vomiting : denies: Dysuria Skin: denies: Rash Musculoskeletal: denies: Back pain, Extremity swelling Neurologic: denies: Focal weakness, Numbness, Headache PD PAST MEDICAL HISTORY - Past Medical History Past Medical History: Yes Cardiovascular: [place], Atrial fibrillation Respiratory: None GI: None : None HEENT: Other Psych: Depression Musculoskeletal: Osteoarthritis, Fatigue Other Past Medical History: Prostate ca, bone ca - Past Surgical History Past Surgical History: Yes Ortho: Hip replacement Cardiovascular: Coronary stent Derm: Skin cancer surgery - Present Medications Home Medications: Ambulatory Orders Medication Instructions Recorded Confirmed Rosuvastatin Calcium [Crestor] 20 mg PO DAILY 03/29/13 10/15/18 Warfarin [Coumadin] 2.5 mg PO DAILY 03/29/13 10/15/18 Levothyroxine [Synthroid] 25 mcg PO QDAC 05/10/16 10/15/18 buPROPion HCl [Bupropion HCl] 150 mg PO BID 05/10/16 10/15/18 Leuprolide Acetate [Lupron Depot] 3.75 mg IM Q3M 01/09/18 10/15/18 Magnesium Oxide [Magnesium] 1 cap PO DAILY 01/09/18 10/15/18 Lidocaine Patch 5% [Lidoderm Patch] 1 each TOP DAILY PRN #10 patch 07/03/18 10/15/18 Albuterol Sulf [Ventolin Hfa 1 - 2 puffs INH Q4HR PRN #1 inhaler 10/15/18 Inhaler] Metoprolol Succinate 12.5 mg PO DAILY 10/15/18 10/15/18 predniSONE [Prednisone] 40 mg PO DAILY #10 tablet 10/15/18 - Allergies Allergies/Adverse Reactions: Allergies Allergy/AdvReac Type Severity Reaction Status Date / Time tamsulosin Allergy Dizziness Verified 10/15/18 09:54 clindamycin AdvReac Severe chest pain Verified 10/15/18 09:54 R side KAYLA Inhibitors AdvReac Intermediate unknown - Verified 10/15/18 09:54 appeared in his records - Social History Does the pt smoke?: No Smoking Status: Never smoker Does the pt drink ETOH?: Yes Does the pt have substance abuse?: No - Immunizations Immunizations are current?: Yes - POLST Patient has POLST: No PD ED PE NORMAL - Vitals Vital signs reviewed: Yes (tachycardic) - General General: Alert and oriented X 3, Well developed/nourished - HEENT HEENT: Atraumatic, Pharynx benign - Neck Neck: No adenopathy, No JVD - Cardiac Cardiac: No murmur, Other (Rapid rate, regular rhythm.) - Respiratory Respiratory: Other (Diffuse expiratory wheezing.) - Abdomen Abdomen: Soft, Non tender - Back Back: No CVA TTP - Derm Derm: No rash - Extremities Extremities: No edema, No calf tenderness / cord - Neuro Neuro: Alert and oriented X 3, No motor deficit, No sensory deficit Results - Vitals Vitals: Oxygen O2 Source Room air - EKG (time done) 09:56 Rate: Rate (enter#) (117) Rhythm: Sinus tachycardia [place]: LAD Ischemia: Q waves (in leads V2-3, consistent with previous anteroseptal RI.) Compare to prior EKG: Unchanged from prior EKG Computer interpretation: Agree with computer - Labs Labs: Laboratory Tests 10/15/18 10/15/18 10/15/18 10:05 10:05 10:05 WBC 6.7 RBC 4.23 L Hgb 12.8 L Hct 37.3 L MCV 88.1 MCH 30.2 MCHC 34.3 RDW 14.0 Plt Count 162 MPV 7.2 L Neut # (Auto) 4.3 Lymph # (Auto) 1.1 L [place] # (Auto) 0.9 Eos # (Auto) 0.3 Baso # (Auto) 0.0 Absolute Nucleated RBC 0.00 Nucleated RBC % 0.1 Sodium 131 L Potassium 3.9 Chloride 97 L Carbon Dioxide 25 Anion Gap 9.0 BUN 16 Creatinine 1.0 Estimated GFR (MDRD) 71 L Glucose 139 H Calcium 9.8 Total Bilirubin 0.8 AST 67 H ALT 74 H Alkaline Phosphatase 64 Troponin I < 0.04 B-Natriuretic Peptide Total Protein 7.6 Albumin 3.8 Globulin 3.8 Albumin/Globulin Ratio 1.0 Lipase 31 Influenza A (Rapid) Influenza B (Rapid) 10/15/18 10/15/18 10:05 13:10 WBC RBC Hgb Hct MCV MCH MCHC RDW Plt Count MPV Neut # (Auto) Lymph # (Auto) [place] # (Auto) Eos # (Auto) Baso # (Auto) Absolute Nucleated RBC Nucleated RBC % Sodium Potassium Chloride Carbon Dioxide Anion Gap BUN Creatinine Estimated GFR (MDRD) Glucose Calcium Total Bilirubin AST ALT Alkaline Phosphatase Troponin I B-Natriuretic Peptide 91 Total Protein Albumin Globulin Albumin/Globulin Ratio Lipase Influenza A (Rapid) Negative Influenza B (Rapid) Negative - Rads (name of study) CXR Radiology: Prelim report reviewed, EMP read contemporaneously, See rad report (Exam limited by grid layering artifact, low lung volumes, and AP portable technique with suboptimal positioning. No pneumonia is detected, limited exam.) PD MEDICAL DECISION MAKING - ED course Complexity details: reviewed old records, reviewed results, re-evaluated patient, considered differential, d/w patient, d/w family ED course: The patient's presentation is most consistent with acute asthmatic bronchitis, with diffuse wheezing. Pneumonia was considered, but is unlikely with no infiltrate detected on chest x-ray, and a normal white blood cell count of 6.7. Congestive heart failure was considered, but is unlikely with a normal BNP of 91, and negative chest x-ray. Electrocardiogram does not reveal ischemic changes, and troponin level is normal. Influenza swab was negative. Treatment in the emergency department included administration of DuoNeb nebulizer, which provided slight improvement in the patient's symptoms and improved air movement on auscultation. Xopenex nebulizer treatment was administered, with subsequent complete resolution of wheezing and improvement in subjective feeling of shortness of breath. Prednisone 40 mg administered o rally, and over the course of his time in the emergency room and 1 L of normal saline was administered IV. He is being discharged with prescriptions for albuterol nebulizer and short course of prednisone. I discussed with him and his family the expected course of illness, outpatient treatment and follow-up, as well as potentially worrisome signs or symptoms that should prompt reevaluation in the emergency department. Departure - Departure Disposition: 01 Home, Self Care Clinical Impression: Acute asthmatic bronchitis Condition: Stable Instructions: ED Bronchitis Asthmatic Follow-Up: Maximo Meyer MD [Primary Care Provider] - Prescriptions: Albuterol Sulf [Ventolin Hfa Inhaler] 1 - 2 puffs INH Q4HR PRN #1 inhaler PRN Reason: Shortness Of Air/Wheezing predniSONE [Prednisone] 40 mg PO DAILY #10 tablet Comments: Use the albuterol inhaler as prescribed. Take prednisone daily for 5 days as prescribed. You can use Tylenol or ibuprofen if needed for discomfort. Follow-up with your primary physician within 1 week. Call to schedule an appointment. Return to the emergency department if you develop increasing difficulty breathing, chest pain, fever with shaking chills, or otherwise worsening symptoms. Discharge Date/Time: 10/15/18 14:32
[2018-10-15] MEDS ORDERED: LEVALBUTEROL 1.25 MG/3 ML NEB INH STA (13:01)
[2018-10-15] MEDS ORDERED: predniSONE 20 MG TABLET PO STA (13:01)
[2018-10-15] MEDS ORDERED: SODIUM CHLORIDE 0.9% 1,000 ML IV ONE (13:10)
[2018-10-15 14:28] VITALS: BP 126/82
== END 2018-10-15 14:32 | disposition home or self-care (01) ==
LOC: ED 09:41
DX: J45.909 Unspecified asthma, uncomplicated (principal); I25.2 Old myocardial infarction; C61 Malignant neoplasm of prostate; C79.51 Secondary malignant neoplasm of bone; R94.31 Abnormal electrocardiogram [ECG] [EKG]; Z96.649 Presence of unspecified artificial hip joint; Z95.5 Presence of coronary angioplasty implant and graft
CPT/HCPCS: 36415; 71046; 80053; 83690; 83880; 84484; 85025; 87275; 87276; 93005; 94640; 94664; 96360; 99283; 99284; J7512

== ENCOUNTER 2018-10-18 09:34 | Outpatient (CLI) | payer MEDICARE, OTHER | END 2018-10-18 09:35 | disposition home or self-care (01) | LOC: LAB 09:34 | PROVIDERS: ATTEND Internal Medicine | DX: I48.91 Unspecified atrial fibrillation (principal); Z79.01 Long term (current) use of anticoagulants | CPT/HCPCS: 85610 ==

== ENCOUNTER 2018-11-01 09:50 | Outpatient (CLI) | payer MEDICARE, OTHER | END 2018-11-01 09:51 | disposition home or self-care (01) | LOC: LAB 09:50 | PROVIDERS: ATTEND Internal Medicine | DX: I48.91 Unspecified atrial fibrillation (principal); Z79.01 Long term (current) use of anticoagulants | CPT/HCPCS: 85610 ==

== ENCOUNTER 2018-12-04 09:09 | Outpatient (CLI) | payer MEDICARE, OTHER | END 2018-12-04 09:10 | disposition home or self-care (01) | LOC: LAB 09:09 | PROVIDERS: ATTEND Internal Medicine | DX: I48.91 Unspecified atrial fibrillation (principal); Z79.01 Long term (current) use of anticoagulants | CPT/HCPCS: 85610 ==

== ENCOUNTER 2018-12-11 08:59 | Outpatient (CLI) | payer MEDICARE, OTHER | END 2018-12-11 09:00 | disposition home or self-care (01) | LOC: LAB 08:59 | PROVIDERS: ATTEND Internal Medicine | DX: I48.91 Unspecified atrial fibrillation (principal); Z79.01 Long term (current) use of anticoagulants | CPT/HCPCS: 85610 ==

== ENCOUNTER 2018-12-18 09:03 | Outpatient (CLI) | payer MEDICARE, OTHER | END 2018-12-18 09:04 | disposition home or self-care (01) | LOC: LAB 09:03 | PROVIDERS: ATTEND Internal Medicine | DX: I48.91 Unspecified atrial fibrillation (principal); Z79.01 Long term (current) use of anticoagulants | CPT/HCPCS: 85610 ==

== ENCOUNTER 2018-12-24 08:05 | Outpatient (CLI) | payer MEDICARE, OTHER | END 2018-12-24 08:06 | disposition critical access hospital (66) | LOC: EMS 08:05 | PROVIDERS: ATTEND Surgery | DX: R53.1 Weakness (principal); R19.7 Diarrhea, unspecified; R53.81 Other malaise; R63.8 Other symptoms and signs concerning food and fluid intake | CPT/HCPCS: A0425; A0427 ==

== ENCOUNTER 2018-12-24 08:12 | Inpatient (IN) | payer MEDICARE, OTHER ==
--- NOTE | 2018-12-24 08:32 | ED Physician Documentation ---
PD HPI NVD - Stated complaint Stated Complaint: N/V/D - Chief complaint Chief Complaint: Abd Pain - History obtained from History obtained from: Patient - History of Present Illness Timing - onset: How many days ago (3-4) Timing - duration: Days (3-4) Timing - details: Gradual onset (He has had feeling of general malaise, weakness, slight cough and body aches along with nausea and diarrhea. He denies any blood in his stool. He has not had any vomiting. He has had decreased oral intake secondary to the nausea. He denies shortness of breath per se. He did feel generally weak and lightheaded this morning and his brought him in for evaluation.) Associated symptoms: Abdominal pain (crampy intermittent with diarrhea; no persistent pain.), Loss of appetite. No: Fever (but chills and aches), Chest pain, Weight loss Contributing factors: No: Sick contact, Bad food, Travel, Recent antibiotics Worsened by: Eating (nausea increases with eating). No: Breathing Similar symptoms before: Has not had sx before Recently seen: Not recently seen Review of Systems Constitutional: reports: Chills, Myalgias, Fatigue (for several days). denies: Fever Nose: denies: Rhinorrhea / runny nose, Congestion Throat: denies: Sore throat Cardiac: denies: Chest pain / pressure, Palpitations Respiratory: reports: Cough. denies: Dyspnea GI: reports: Abdominal Pain (intermittent cramping), Nausea, Diarrhea. denies: Abdominal Swelling, Vomiting, Constipation, Bloody / black stool : denies: Dysuria Musculoskeletal: denies: Neck pain, Back pain Neurologic: reports: Generalized weakness, Near syncope. denies: Focal weakness, Syncope, Confused, Altered mental status, Headache PD PAST MEDICAL HISTORY - Past Medical History Cardiovascular: OK, Atrial fibrillation Respiratory: None (Does not use any inhalers and is not usually on any oxygen.) GI: None : None HEENT: Other Psych: Depression Musculoskeletal: Osteoarthritis, Fatigue - Past Surgical History Past Surgical History: Yes Ortho: Hip replacement Cardiovascular: Coronary stent Derm: Skin cancer surgery - Present Medications Home Medications: Ambulatory Orders Medication Instructions Recorded Confirmed Rosuvastatin Calcium [Crestor] 20 mg PO DAILY 03/29/13 12/24/18 Warfarin [Coumadin] 2.5 - 5 mg PO DAILY 03/29/13 12/24/18 Levothyroxine [Synthroid] 25 mcg PO QDAC 05/10/16 12/24/18 Leuprolide Acetate [Lupron Depot] 3.75 mg IM Q3M 01/09/18 12/24/18 Magnesium Oxide [Magnesium] 400 mg PO DAILY 01/09/18 12/24/18 Albuterol Sulf [Ventolin Hfa 1 - 2 puffs INH Q4HR PRN #1 inhaler 10/15/18 12/24/18 Inhaler] Alfuzosin HCl [Alfuzosin HCl ER] 10 mg PO DAILY 11/13/18 12/24/18 Hydrocortisone 10 mg PO DAILY PM 11/13/18 12/24/18 Hydrocortisone 20 mg PO DAILY 11/13/18 12/24/18 Ketoconazole 400 mg PO TID 11/13/18 12/24/18 Oxybutynin Chloride 5 mg PO DAILY 11/13/18 12/24/18 Metoprolol Succinate 12.5 mg PO DAILY 12/24/18 12/24/18 buPROPion [Wellbutrin Sr] 150 mg PO BID 12/24/18 12/24/18 - Allergies Allergies/Adverse Reactions: Allergies Allergy/AdvReac Type Severity Reaction Status Date / Time tamsulosin Allergy Dizziness Verified 10/15/18 09:54 clindamycin AdvReac Severe chest pain Verified 10/15/18 09:54 R side KAYLA Inhibitors AdvReac Intermediate unknown - Verified 12/24/18 08:18 appeared in his records - Living Situation Living Situation: reports: With spouse/s.o. Living Arrangement: reports: At home (He is usually healthy active and vigorous. He does indoor and outdoor activity and his own ADLs.) - Social History Does the pt smoke?: No Smoking Status: Never smoker Does the pt drink ETOH?: Yes Does the pt have substance abuse?: No - Immunizations Immunizations are current?: Yes - POLST Patient has POLST: No PD ED PE NORMAL - Vitals Vital signs reviewed: Yes (initially hypotensive and tachycardic) - General General: Alert and oriented X 3, Well developed/nourished - HEENT HEENT: Pharynx benign - Neck Neck: Supple, no meningeal sign, No adenopathy - Cardiac Cardiac: No murmur. No: RRR (regular but tachycardic at about 110.) - Respiratory Respiratory: No: Clear bilaterally (some mild wheezing upper lungs. No coarse sounds. ) - Abdomen Abdomen: Normal bowel sounds, Soft, Non tender, Non distended, No organomegaly - Male Male : Deferred - Rectal Rectal: Other (mild brown watery stool in vault; guiac negative. ) - Back Back: No CVA TTP - Derm Derm: Warm and dry. No: Normal color (mild pallor) - Extremities Extremities: No deformity, No tenderness to palpate, Normal ROM s pain, No edema, No calf tenderness / cord - Neuro Neuro: Alert and oriented X 3, No motor deficit, Normal speech Results - Vitals Vitals: Vital Signs - 24 hr 12/24/18 12/24/18 12/24/18 08:13 09:56 10:09 Temperature 36.3 C L Heart Rate 110 H 100 106 H Respiratory 22 12 20 Rate Blood Pressure 110/68 123/72 O2 Saturation 92 89 L 12/24/18 10:54 Temperature 37.0 C Heart Rate 104 H Respiratory 20 Rate Blood Pressure 121/74 O2 Saturation 90 L Oxygen O2 Source Nasal cannula Oxygen Flow Rate 3 - EKG (time done) 08:36 Rate: Rate (enter#) (114) Rhythm: Sinus tachycardia [place]: Normal Intervals: Normal NC QRS: Normal Ischemia: Normal ST segments, Non specific changes (t flattening laterally). No: ST elevation c/w ischemia, ST depression - Labs Labs: Laboratory Tests 12/24/18 12/24/18 12/24/18 08:24 08:24 08:24 WBC 9.4 RBC 3.85 L Hgb 11.2 L Hct 33.4 L MCV 86.9 MCH 29.1 MCHC 33.5 RDW 16.3 H Plt Count 196 MPV 6.4 L Neut # (Auto) 7.8 H Lymph # (Auto) 0.6 L [place] # (Auto) 0.9 Eos # (Auto) 0.1 Baso # (Auto) 0.0 Absolute Nucleated RBC 0.00 Nucleated RBC % 0.0 PT INR Sodium 135 Potassium 3.2 L Chloride 102 Carbon Dioxide 20 L Anion Gap 13.0 BUN 13 Creatinine 0.9 Estimated GFR (MDRD) 80 L Glucose 117 H Lactic Acid Calcium 8.6 Magnesium Total Bilirubin 1.3 H AST 21 ALT 14 Alkaline Phosphatase 54 Troponin I < 0.04 B-Natriuretic Peptide Total Protein 6.7 Albumin 3.0 L Globulin 3.7 Albumin/Globulin Ratio 0.8 L Lipase 20 L TSH Cortisol Influenza A (Rapid) Influenza B (Rapid) 12/24/18 12/24/18 12/24/18 08:24 08:24 08:24 WBC RBC Hgb Hct MCV MCH MCHC RDW Plt Count MPV Neut # (Auto) Lymph # (Auto) [place] # (Auto) Eos # (Auto) Baso # (Auto) Absolute Nucleated RBC Nucleated RBC % PT 38.0 H INR 3.4 H Sodium Potassium Chloride Carbon Dioxide Anion Gap BUN Creatinine Estimated GFR (MDRD) Glucose Lactic Acid Calcium Magnesium 1.8 Total Bilirubin AST ALT Alkaline Phosphatase Troponin I B-Natriuretic Peptide 320 H Total Protein Albumin Globulin Albumin/Globulin Ratio Lipase TSH Cortisol Influenza A (Rapid) Influenza B (Rapid) 12/24/18 12/24/18 12/24/18 08:24 08:24 08:24 WBC RBC Hgb Hct MCV MCH MCHC RDW Plt Count MPV Neut # (Auto) Lymph # (Auto) [place] # (Auto) Eos # (Auto) Baso # (Auto) Absolute Nucleated RBC Nucleated RBC % PT INR Sodium Potassium Chloride Carbon Dioxide Anion Gap BUN Creatinine Estimated GFR (MDRD) Glucose Lactic Acid Calcium Magnesium 2.0 Total Bilirubin AST ALT Alkaline Phosphatase Troponin I B-Natriuretic Peptide Total Protein Albumin Globulin Albumin/Globulin Ratio Lipase TSH 2.91 Cortisol 47.2 Influenza A (Rapid) Influenza B (Rapid) 12/24/18 12/24/18 09:24 10:56 WBC RBC Hgb Hct MCV MCH MCHC RDW Plt Count MPV Neut # (Auto) Lymph # (Auto) [place] # (Auto) Eos # (Auto) Baso # (Auto) Absolute Nucleated RBC Nucleated RBC % PT INR Sodium Potassium Chloride Carbon Dioxide Anion Gap BUN Creatinine Estimated GFR (MDRD) Glucose Lactic Acid 0.8 Calcium Magnesium Total Bilirubin AST ALT Alkaline Phosphatase Troponin I B-Natriuretic Peptide Total Protein Albumin Globulin Albumin/Globulin Ratio Lipase TSH Cortisol Influenza A (Rapid) Negative Influenza B (Rapid) Negative - Rads (name of study) chest xray Radiology: Prelim report reviewed (Bilateral upper lobe haziness consistent with early infiltrates. Small bilateral effusions.), See rad report PD MEDICAL DECISION MAKING - ED course Complexity details: reviewed results, re-evaluated patient (His blood pressure improved with IV fluids. He does not seem to be in congestive failure. He is still hypoxic on room air despite nebulizer treatments. He is not really wheezy either. He will need further evaluation and treatment at this point will treat for likely infectious pneumonia. We will give a steroid dose given his history of adrenal insufficiency..), considered differential (He is hypotensive and tachycardic and given less intake with nausea as well as diarrhea I consider most likely dehydration. There is no pedal edema. I do not hear any wetness in his lungs and there is no history of congestive heart failure. We will give him some IV fluids and this did improve his blood pressure though he remains some tachycardic at 100-110. I think the tachycardia is compensatory for other illness. He is also found to be hypoxic on room air at 85-88%. This does improve on nasal cannula. He generally has flulike symptoms. His chest x-ray is read as early infiltrates consistent with pneumonia. We will treat him that way and watch for improvement. Also to consider heart related issues such as cardiomyopathy.), d/w patient, d/w vm[employer] consultant (Hospitalist regarding ongoing treatment.) Departure - Departure Disposition: [facility] DC/Xfer Clinical Impression: Dyspnea, Generalized weakness, Transient hypotension, Hypoxemia, Pneumonia, Flu-like symptoms, Diarrhea Discharge Date/Time: 12/24/18 12:45
[2018-12-24 08:35] LABS: BASOPHILS % (AUTO) 0.2 %; EOSINOPHILS # (AUTO) 0.1 10^3/uL (0.0-0.7); HGB - HEMOGLOBIN 11.2 g/dL (14.0-18.0); LYMPHOCYTES # (AUTO) 0.6 10^3/uL (1.5-3.5); LYMPHOCYTES % (AUTO) 6.1 %; MEAN CORPUSCULAR HEMOGLOBIN 29.1 pg (27.0-31.0); MEAN CORPUSCULAR HGB CONC 33.5 g/dL (32.0-36.0); MEAN CORPUSCULAR VOLUME 86.9 fL (80.0-94.0); MEAN PLATELET VOLUME 6.4 fL (7.4-11.4); MONOCYTES # (AUTO) 0.9 10^3/uL (0.0-1.0); MONOCYTES % (AUTO) 9.2 %; NEUTROPHILS # (AUTO) 7.8 10^3/uL (1.5-6.6); NEUTROPHILS % (AUTO) 83.5 %; PLT - PLATELET COUNT 196 10^3/uL (130-450); RED BLOOD COUNT 3.85 10^6/uL (4.70-6.10); RED CELL DISTRIBUTION WIDTH 16.3 % (12.0-15.0); WHITE BLOOD COUNT 9.4 x10^3/uL (4.8-10.8)
[2018-12-24 08:58] LABS: ALBUMIN/GLOBULIN RATIO 0.8 (1.0-2.2); BILIRUBIN,TOTAL 1.3 mg/dL (0.2-1.0); CALCIUM 8.6 mg/dL (8.5-10.3); CREATININE 0.9 mg/dL (0.6-1.2); TOTAL PROTEIN 6.7 g/dL (6.7-8.2)
--- NOTE | 2018-12-24 08:59 | XRAY Report ---
Reason: chest pain SOA Procedure Date: 12/24/2018 Accession Number: [id number] / [id number] Procedure: XR - Chest 1 View X-Ray CPT Code: 11599 FULL RESULT: EXAM: CHEST RADIOGRAPHY EXAM DATE: 12/24/2018 08:42 AM. CLINICAL HISTORY: Chest pain. Shortness of breath. COMPARISON: CHEST 2 VIEW 10/15/2018 10:24 AM CHEST 2 VIEW 07/02/2018 3:[address] CHEST W/ 04/14/2017 12:05 PM. TECHNIQUE: 1 view. FINDINGS: Lungs/Pleura: Lung volumes are low. There are hazy alveolar and interstitial opacities in the bilateral upper lungs, left greater than right. There is blunting of the bilateral costophrenic sulci suspicious for small bilateral pleural effusions. No pneumothorax. The left chest apex is partially obscured by superimposition of the mandible. Mediastinum: Within exam limitations, the cardiomediastinal contour is normal. Other: No acute displaced fracture visualized. There are moderate degenerative changes of the partially visualized right glenohumeral joint. IMPRESSION: 1. Low lung volumes. Bilateral upper lung opacities, left greater than right, suspicious for multifocal pneumonia or asymmetric pulmonary edema. 2. Probable small bilateral pleural effusions. RADIA
[2018-12-24] MEDS ORDERED: ONDANSETRON 4 MG/2 ML VIAL IVP STA (09:08)
[2018-12-24] MEDS ORDERED: DIPHENOX/ATROPINE 2.5/0.025 MG TABLET PO STA (09:08)
[2018-12-24] MEDS ORDERED: FAMOTIDINE 20 MG/2 ML VIAL IVP STA (09:08)
[2018-12-24] MEDS ORDERED: SODIUM CHLORIDE 0.9% 1,000 ML IV ONE ×2 (09:08→10:39)
[2018-12-24 09:35] LABS: INR 3.4 (0.8-1.2)
[2018-12-24] MEDS ORDERED: ALBUTEROL NEB 2.5 MG/3 ML INH STA (09:40)
[2018-12-24] MEDS ORDERED: AZITHROMYCIN INJ 500 MG in SODIUM CHLORIDE 0.9% 250 ML IV STA (10:50)
[2018-12-24] MEDS ORDERED: cefTRIAXone 1 GM VIAL IVP STA (10:50)
[2018-12-24] MEDS ORDERED: DEXAMETHASONE 10 MG/ML VIAL IVP STA (11:33)
[2018-12-24] MEDS ORDERED: PROMETHAZINE 25 MG/1 ML VIAL IM PRN (11:44)
[2018-12-24] MEDS ORDERED: SODIUM CHLORIDE FLUSH 0.9% 10 ML SYRINGE IVP PRN (11:44)
[2018-12-24] MEDS ORDERED: HYDROcod/ACETAM 5/325 MG TABLET PO PRN (11:44)
[2018-12-24] MEDS ORDERED: TEMAZEPAM 15 MG CAPSULE PO PRN (11:44)
[2018-12-24] MEDS ORDERED: ONDANSETRON ODT 4 MG TABLET TL PRN (11:44)
[2018-12-24] MEDS ORDERED: SODIUM CHLORIDE 0.9% 250 ML IV PRN (12:02)
[2018-12-24] MEDS ORDERED: AZITHROMYCIN 250 MG TABLET PO STA (12:06)
[2018-12-24] MEDS ORDERED: MAGNESIUM SULFATE 2 GRAM 2 GM/50 ML BAG IV ONE (12:09)
--- NOTE | 2018-12-24 12:21 | HISTORY & PHYSICAL EXAMINATION ---
Chief Complaint - Chief Complaint Chief Complaint: Diarrhea for 4 days with generalized weakness subjective fevers and chills Abdominal Pain HPI - Admitted From Admitted from: ED - History Obtained From Records Reviewed: RN notes reviewed, Old records reviewed History obtained from: Patient, Family Exam limitations: No limitations - History of Present Illness HPI Comment/Other: This is a pleasant 83-year-old with a history of chronic atrial fibrillation anticoagulated with Coumadin, coronary artery disease with HI with stent placement, CKD-3, systolic heart failure with ejection fraction of 45-50% on echo dated 10/18/16, 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 Patient has had loose stools and has been feeling generalized weakness. In the emergency department patient was hypotensive to low 80s tachycardic to the upper 105, chest x-ray showed patchy upper lobe infiltrates. INR was 3.4. BNP 300. EKG showed sinus tachycardia. Troponin unremarkable. Occult blood negative. Patient was placed on supplemental oxygenation to correct his hypoxemia which was 85-88% on room air. Patient is currently on 4 L nasal cannula. Patient was treated with IV fluid resuscitation given a Zithromax and Rocephin empirically in the ED. Patient has been complaining of poor poor oral intake lightheadedness with nausea nonbloody nonbilious emesis or and or diarrhea. Chest x-ray revealed pulmonary edema versus a left more than the right patchy upper lobe infiltrate. EKG shows sinus tachycardia. Potassium was low at 3.2 PMH/PSH - Past Medical History Cardiovascular: positive: HI, Atrial fibrillation Respiratory: positive: None GI: positive: None : positive: None HEENT: positive: Other Psych: positive: Depression Musculoskeletal: positive: Osteoarthritis, Fatigue MRSA Hx?: No - Past Surgical History Ortho: positive: Hip replacement Cardiovascular: positive: Coronary stent Derm: positive: Skin cancer surgery Social & Family Hx - Social History Does the pt smoke?: No Smoking Status: Never smoker Does the pt drink ETOH?: Yes Does the pt have substance abuse?: No - POLST Patient has POLST: No Meds/Allgy - Home Medications Home Medications: Ambulatory Orders Medication Instructions Recorded Confirmed Rosuvastatin Calcium [Crestor] 20 mg PO DAILY 03/29/13 12/24/18 Warfarin [Coumadin] 2.5 - 5 mg PO DAILY 03/29/13 12/24/18 Levothyroxine [Synthroid] 25 mcg PO QDAC 05/10/16 12/24/18 Leuprolide Acetate [Lupron Depot] 3.75 mg IM Q3M 01/09/18 12/24/18 Magnesium Oxide [Magnesium] 400 mg PO DAILY 01/09/18 12/24/18 Albuterol Sulf [Ventolin Hfa 1 - 2 puffs INH Q4HR PRN #1 inhaler 10/15/18 12/24/18 Inhaler] Alfuzosin HCl [Alfuzosin HCl ER] 10 mg PO DAILY 11/13/18 12/24/18 Hydrocortisone 10 mg PO DAILY PM 11/13/18 12/24/18 Hydrocortisone 20 mg PO DAILY 11/13/18 12/24/18 Ketoconazole 400 mg PO TID 11/13/18 12/24/18 Oxybutynin Chloride 5 mg PO DAILY 11/13/18 12/24/18 Metoprolol Succinate 12.5 mg PO DAILY 12/24/18 12/24/18 buPROPion [Wellbutrin Sr] 150 mg PO BID 12/24/18 12/24/18 - Allergies Allergies/Adverse Reactions: Allergies Allergy/AdvReac Type Severity Reaction Status Date / Time tamsulosin Allergy Dizziness Verified 10/15/18 09:54 clindamycin AdvReac Severe chest pain Verified 10/15/18 09:54 R side KAYLA Inhibitors AdvReac Intermediate unknown - Verified 12/24/18 08:18 appeared in his records Review of Systems - Constitutional Constitutional: reports: Fatigue, Weakness, Poor appetite - Cardiovascular Cariovascular: reports: Lightheadedness, Orthopnea - Respiratory Respiratory: reports: Cough, SOB with exertion - Gastrointestinal Gastrointestinal: reports: Abdominal pain, Diarrhea - Genitourinary Genitourinary: denies: Dysuria, Frequency, Hematuria, Urethral discharge - Musculoskeletal Musculoskeletal: reports: Muscle pain, Back pain, Muscle aches, Muscle weakness - Integumentary Integumentary: denies: Rash - Neurological Neurological: reports: General weakness. denies: Headache, Dizziness, Memory problems, Seizures - Psychiatric Psychiatric: reports: Depression, Anxiety - Endocrine Endocrine: denies: Polyuria, Polydypsia, Intolerance to cold - Hematologic/Lymphatic Hematologic/Lymphatic: denies: Bruising, Recurrent infections - All Other Systems All Other Systems: reports: Reviewed and negative Prior Level of Functionality: Patient with generally good functional capacity with ADLs Exam - Vital Signs Vital Signs: Vital Signs x48h Temp Pulse Resp BP Pulse Ox 12/24/18 10:54 37.0 C 104 H 20 121/74 90 L 12/24/18 10:09 106 H 20 123/72 89 L 12/24/18 09:56 100 12 12/24/18 08:13 36.3 C L 110 H 22 110/68 92 - Physical Exam General Appearance: positive: No acute distress, Alert, Mild distress, Other ( Acutely ill-appearing) Eyes Bilateral: positive: Normal inspection, PERRL, EOMI, No lid inflammation, Conjunctivae nml. negative: No scleral icterus ENT: positive: ENT inspection nml, Pharynx nml, Dry mucous membranes. negative: Oral lesions Neck: positive: Nml inspection, Thyroid nml, No JVD, Trachea midline. negative: Thyromegaly Respiratory: positive: Chest non-tender, Rales, Rhonchi Cardiovascular: positive: No murmur, No gallop, Irregularly irregular, Tachycardia. negative: JVD present, Gallop/S4 Peripheral Pulses: positive: 2+ Abdomen: positive: Non-tender, Other (Abdominal distention noted with tympany on percussion). negative: Hepatomegaly, Splenomegaly Back: positive: Nml inspection Skin: positive: Color nml, No rash, Warm Neurologic/Psychiatric: positive: Oriented x3, CN's nml (2-12), Depressed mood/affect Results - Lab Results Lab results reviewed: Yes Fish Bones: 12/24/18 08:24 12/24/18 08:24 Other Lab Results: Lab Results x24hrs 12/24/18 12/24/18 12/24/18 Range/Units 10:56 09:24 08:24 WBC (4.8-10.8) x10^3/uL RBC (4.70-6.10) 10^6/uL Hgb (14.0-18.0) g/dL Hct (42.0-52.0) % MCV (80.0-94.0) fL MCH (27.0-31.0) pg MCHC (32.0-36.0) g/dL RDW (12.0-15.0) % Plt Count (130-450) 10^3/uL MPV (7.4-11.4) fL Neut # (Auto) (1.5-6.6) 10^3/uL Lymph # (Auto) (1.5-3.5) 10^3/uL [place] # (Auto) (0.0-1.0) 10^3/uL Eos # (Auto) (0.0-0.7) 10^3/uL Baso # (Auto) (0.0-0.1) 10^3/uL Absolute Nucleated RBC x10^3/uL Nucleated RBC % /100WBC PT (9.9-12.6) secs INR (0.8-1.2) Sodium (135-145) mmol/L Potassium (3.5-5.0) mmol/L Chloride (101-111) mmol/L Carbon Dioxide (21-32) mmol/L Anion Gap (6-13) BUN (6-20) mg/dL Creatinine (0.6-1.2) mg/dL Estimated GFR (MDRD) (>89) Glucose (70-100) mg/dL Lactic Acid 0.8 (0.5-2.2) mmol/L Calcium (8.5-10.3) mg/dL Magnesium (1.7-2.8) mg/dL Total Bilirubin (0.2-1.0) mg/dL AST (10-42) IU/L ALT (10-60) IU/L Alkaline Phosphatase (42-121) IU/L Troponin I (<0.49) ng/mL B-Natriuretic Peptide (5-100) pg/mL Total Protein (6.7-8.2) g/dL Albumin (3.2-5.5) g/dL Globulin (2.1-4.2) g/dL Albumin/Globulin Ratio (1.0-2.2) Lipase (22-51) U/L Cortisol 47.2 ug/dL Influenza A (Rapid) Negative (Negative) Influenza B (Rapid) Negative (Negative) 12/24/18 12/24/18 12/24/18 Range/Units 08:24 08:24 08:24 WBC (4.8-10.8) x10^3/uL RBC (4.70-6.10) 10^6/uL Hgb (14.0-18.0) g/dL Hct (42.0-52.0) % MCV (80.0-94.0) fL MCH (27.0-31.0) pg MCHC (32.0-36.0) g/dL RDW (12.0-15.0) % Plt Count (130-450) 10^3/uL MPV (7.4-11.4) fL Neut # (Auto) (1.5-6.6) 10^3/uL Lymph # (Auto) (1.5-3.5) 10^3/uL [place] # (Auto) (0.0-1.0) 10^3/uL Eos # (Auto) (0.0-0.7) 10^3/uL Baso # (Auto) (0.0-0.1) 10^3/uL Absolute Nucleated RBC x10^3/uL Nucleated RBC % /100WBC PT 38.0 H (9.9-12.6) secs INR 3.4 H (0.8-1.2) Sodium (135-145) mmol/L Potassium (3.5-5.0) mmol/L Chloride (101-111) mmol/L Carbon Dioxide (21-32) mmol/L Anion Gap (6-13) BUN (6-20) mg/dL Creatinine (0.6-1.2) mg/dL Estimated GFR (MDRD) (>89) Glucose (70-100) mg/dL Lactic Acid (0.5-2.2) mmol/L Calcium (8.5-10.3) mg/dL Magnesium 1.8 (1.7-2.8) mg/dL Total Bilirubin (0.2-1.0) mg/dL AST (10-42) IU/L ALT (10-60) IU/L Alkaline Phosphatase (42-121) IU/L Troponin I (<0.49) ng/mL B-Natriuretic Peptide 320 H (5-100) pg/mL Total Protein (6.7-8.2) g/dL Albumin (3.2-5.5) g/dL Globulin (2.1-4.2) g/dL Albumin/Globulin Ratio (1.0-2.2) Lipase (22-51) U/L Cortisol ug/dL Influenza A (Rapid) (Negative) Influenza B (Rapid) (Negative) 12/24/18 12/24/18 12/24/18 Range/Units 08:24 08:24 08:24 WBC 9.4 (4.8-10.8) x10^3/uL RBC 3.85 L (4.70-6.10) 10^6/uL Hgb 11.2 L (14.0-18.0) g/dL Hct 33.4 L (42.0-52.0) % MCV 86.9 (80.0-94.0) fL MCH 29.1 (27.0-31.0) pg MCHC 33.5 (32.0-36.0) g/dL RDW 16.3 H (12.0-15.0) % Plt Count 196 (130-450) 10^3/uL MPV 6.4 L (7.4-11.4) fL Neut # (Auto) 7.8 H (1.5-6.6) 10^3/uL Lymph # (Auto) 0.6 L (1.5-3.5) 10^3/uL [place] # (Auto) 0.9 (0.0-1.0) 10^3/uL Eos # (Auto) 0.1 (0.0-0.7) 10^3/uL Baso # (Auto) 0.0 (0.0-0.1) 10^3/uL Absolute Nucleated RBC 0.00 x10^3/uL Nucleated RBC % 0.0 /100WBC PT (9.9-12.6) secs INR (0.8-1.2) Sodium 135 (135-145) mmol/L Potassium 3.2 L (3.5-5.0) mmol/L Chloride 102 (101-111) mmol/L Carbon Dioxide 20 L (21-32) mmol/L Anion Gap 13.0 (6-13) BUN 13 (6-20) mg/dL Creatinine 0.9 (0.6-1.2) mg/dL Estimated GFR (MDRD) 80 L (>89) Glucose 117 H (70-100) mg/dL Lactic Acid (0.5-2.2) mmol/L Calcium 8.6 (8.5-10.3) mg/dL Magnesium (1.7-2.8) mg/dL Total Bilirubin 1.3 H (0.2-1.0) mg/dL AST 21 (10-42) IU/L ALT 14 (10-60) IU/L Alkaline Phosphatase 54 (42-121) IU/L Troponin I < 0.04 (<0.49) ng/mL B-Natriuretic Peptide (5-100) pg/mL Total Protein 6.7 (6.7-8.2) g/dL Albumin 3.0 L (3.2-5.5) g/dL Globulin 3.7 (2.1-4.2) g/dL Albumin/Globulin Ratio 0.8 L (1.0-2.2) Lipase 20 L (22-51) U/L Cortisol ug/dL Influenza A (Rapid) (Negative) Influenza B (Rapid) (Negative) - Diagnostic Imaging Results Diagnostic Imaging Results: positive: Final report reviewed - EKG Results EKG Interpreted Independently: Yes EKG Comparison: positive: Old EKG unavailable Sepsis Event Note (H) - Evaluation Current Stage of Sepsis: Ruled out Possible source of Sepsis: positive: Pulmonary Impression/Plan - Problem List Problem List: 1. Acute hypoxemic respiratory failure requiring supplemental oxygenation -Patient currently on 4 L nasal cannula. Underlying factors would include RVR variable atrial fibrillation along with suspected questionable pneumonia left upper lobe versus the right. Lactic acid was not elevated, obtain sputum Gram stain culture, continue to optimize respiratory function, duo nebs, incentive spirometry and pulmonary toileting. Empiric antibiotics. 2. Suspected community-acquired pneumonia versus pulmonary edema -Patient was given a azithromycin/Rocephin in the ED and will continue with a Z- Perico, along with oral doxycycline as Levaquin and Flagyl have drug drug inter actions with warfarin and ketoconazole. Continue therapies as per above. Mild QTC prolongation on EKG will be choosing azithromycin and doxycycline due to interaction with warfarin and ketoconazole. 3. Variable RVR atrial fibrillation with associated pulmonary edema, Currently anticoagulated with Coumadin with therapeutic INR 3.4. -Patient already anticoagulated and in therapeutic range, calculation of chads vas score is 5 pts, Which places patient at 7.2% stroke risk per year. His HASbled score is 2 pts, Moderate risk of major bleeding. Coumadin will be held for now. Continue with daily INR monitoring. Occult blood was negative. Maintain mag above 2.0 and potassium above 4.0. Patient's mentioned that he drinks rum and coke daily and she is concerned about alcohol withdrawal. Will place on CIWA protocol with Ativan. Provide multivitamins, folic acid and thiamine. 4. Acute on chronic systolic heart failure with a prior ejection fraction of 45- 50% on echo 10/18/16. -We will provide guideline directed medical therapy however in the setting of patient's adrenal insufficiency and RVR A. fib which may be contributing to worsening pulmonary edema will probably use digoxin plus or minus Lasix intermittently or periodically for symptom management. Continue with aspirin statin and treat modifiable cardiovascular risk factors. Patient's repeat echocardiogram on this admission showed a no difference in 45-50% ejection fraction on 12/24. 5. Acute gastroenteritis, viral versus iatrogenic (ketoconazole) -Unclear at this point of etiology of acute gastroenteritis with no leukocytosis other than abdominal distention with some generalized nonspecific pain not localized to left or right lower quadrants. Will have stools for Gram stain and culture as well as C. difficile. With clear watery on ketoconazole as this can cause abdominal pain nausea vomiting and GI symptoms. Supportive care for now. 6. Acute moderate dehydration with hypokalemia -Replace underlying electrolyte disturbances., Maintain magnesium above 2.0 and potassium above 4.0 in the setting of RVR atrial fibrillation. 7. Suspected adrenal insufficiency with a history of chronic Solu-Cortef -We will continue IV Solu-Cortef at 100 mg 3 times daily and obtain a cortisol level prior to starting medications. 8. History of prostate cancer castration resistance would query on metastatic process -Per Dr. 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 He was started with Vantas implant in 06/2009 and Casodex in April 2009. Vantas was held in 06/2010 Due to its side effects. He stopped Casodex and 12/31. Restarted Lupron in 07/04 and continues on Lupron at this moment. Rising PSA level since February 2017 with disease progression on bone scan bone scan in April 2018. I reviewed the bone scan as well as prior CT abdomen pelvis in 04/03 and there is no mention of metastatic musculoskeletal spread. Would continue with medical management at this point as well as his prior anticancer prostate medications 9. Hypothyroidism -Continue with Synthroid 10. Hyperlipidemia -Continue with statin 11. Deconditioned status secondary to above -We will optimize nutrition, increase oral intake, consider appetite stimulants, consider physical therapy 12. Advance care planning education counseling -Patient was explained on his disease management along with symptomatic treatment for reversible causes as well as disease trajectory as it relates this patient's cancer. Palliative care consultation should be explored on goals of care along with disease management and symptom management. Code Status: DNR per DPOA Core Measures - Anticipated LOS I expect patient to be DC'd or transferred within 96 hours.: Yes - DVT/VTE - Prophylaxis VTE/DVT Device ordered at admit?: Yes VTE/DVT Prophylaxis med ordered at admit?: Yes - Stroke - Rehab Assessment Rehab services assessment to be ordered?: No - AMI - Statin at Admit Aspirin Prescribed on Admit: Yes
[2018-12-24] MEDS ORDERED: DIGOXIN 500 MCG/2 ML AMP IVP PRN (12:40)
[2018-12-24] MEDS ORDERED: hydrALAZINE INJ 20 MG/ML VIAL IVP PRN (12:41)
[2018-12-24] MEDS ORDERED: LEVALBUTEROL 1.25 MG/3 ML NEB INH SCH (13:00)
[2018-12-24] MEDS: DOXYCYCLINE 100 MG TABLET PO SCH (13:46)
[2018-12-24] MEDS: ENOXAPARIN 40 MG/0.4 ML SYRINGE SUBQ SCH (13:46)
[2018-12-24] MEDS: POTASSIUM CHLOR 10 MEQ/100 ML 10 MEQ/100 ML BAG IV SCH ×2 (13:54→15:34)
[2018-12-24] MEDS ORDERED: HYDROCORTISONE SUCCINATE 100 MG/2 ML VIAL IVP SCH (14:00)
[2018-12-24] MEDS: MIDODRINE 2.5 MG TABLET PO SCH ×2 (14:04→21:49)
[2018-12-24] MEDS: KETOCONAZOLE PO SCH ×2 (15:36→21:51)
[2018-12-24] MEDS ORDERED: MAGNESIUM SULFATE 2 GRAM 2 GM/50 ML BAG IV SCH (16:00)
[2018-12-24] MEDS: ACETAMINOPHEN 325 MG TABLET PO PRN (16:19)
[2018-12-24] MEDS: SODIUM CHLORIDE FLUSH 0.9% 10 ML SYRINGE IVP SCH (17:04)
[2018-12-24] MEDS ORDERED: LORazepam 1 MG TABLET PO PRN (17:54)
[2018-12-24] MEDS: LEVALBUTEROL 1.25 MG/3 ML NEB INH SCH (20:23)
[2018-12-24] MEDS: buPROPion SR 150 MG TABLET PO SCH (21:48)
[2018-12-24] MEDS: MULTIVITAMIN W/MINERALS TABLET PO SCH (21:48)
[2018-12-24] MEDS: FAMOTIDINE 20 MG TABLET PO SCH (21:48)
[2018-12-24] MEDS: METOPROLOL SUCCINATE 25 MG TABLET PO SCH (21:49)
[2018-12-24] MEDS: THIAMINE 100 MG TABLET PO SCH (21:49)
[2018-12-24] MEDS: HYDROCORTISONE 10 MG TABLET PO SCH (21:49)
[2018-12-25] MEDS: DOXYCYCLINE 100 MG TABLET PO SCH ×3 (00:42→21:01)
[2018-12-25] MEDS: SODIUM CHLORIDE FLUSH 0.9% 10 ML SYRINGE IVP SCH ×3 (00:44→17:32)
[2018-12-25] MEDS: ACETAMINOPHEN 325 MG TABLET PO PRN ×2 (05:01→13:08)
[2018-12-25 05:43] LABS: BASOPHILS % (AUTO) 0.1 %; EOSINOPHILS # (AUTO) 0.1 10^3/uL (0.0-0.7); EOSINOPHILS % (AUTO) 0.6 %; HGB - HEMOGLOBIN 10.9 g/dL (14.0-18.0); LYMPHOCYTES # (AUTO) 0.4 10^3/uL (1.5-3.5); LYMPHOCYTES % (AUTO) 4.8 %; MEAN CORPUSCULAR HEMOGLOBIN 30.2 pg (27.0-31.0); MEAN CORPUSCULAR HGB CONC 34.2 g/dL (32.0-36.0); MEAN CORPUSCULAR VOLUME 88.2 fL (80.0-94.0); MEAN PLATELET VOLUME 6.9 fL (7.4-11.4); MONOCYTES # (AUTO) 0.5 10^3/uL (0.0-1.0); MONOCYTES % (AUTO) 5.4 %; NEUTROPHILS # (AUTO) 8.1 10^3/uL (1.5-6.6); NEUTROPHILS % (AUTO) 89.1 %; PLT - PLATELET COUNT 209 10^3/uL (130-450); RED CELL DISTRIBUTION WIDTH 16.2 % (12.0-15.0); WHITE BLOOD COUNT 9.1 x10^3/uL (4.8-10.8)
[2018-12-25 05:47] LABS: INR 3.7 (0.8-1.2); PT - PROTHROMBIN TIME 40.9 secs (9.9-12.6)
[2018-12-25 05:59] LABS: ALBUMIN 2.8 g/dL (3.2-5.5); CALCIUM 8.7 mg/dL (8.5-10.3); CREATININE 0.6 mg/dL (0.6-1.2); PHOSPHORUS 1.8 mg/dL (2.5-4.6)
[2018-12-25] MEDS: KETOCONAZOLE PO SCH ×3 (06:44→21:02)
[2018-12-25] MEDS: LEVOTHYROXINE 25 MCG TABLET PO SCH (06:44)
[2018-12-25] MEDS: MIDODRINE 2.5 MG TABLET PO SCH ×3 (06:44→21:00)
[2018-12-25] MEDS: FAMOTIDINE 20 MG TABLET PO SCH (08:49)
[2018-12-25] MEDS: ENOXAPARIN 40 MG/0.4 ML SYRINGE SUBQ SCH (08:49)
[2018-12-25] MEDS: buPROPion SR 150 MG TABLET PO SCH ×2 (08:50→21:00)
[2018-12-25] MEDS: OXYBUTYNIN 5MG TABLET PO SCH (08:50)
[2018-12-25] MEDS: FOLIC ACID 1 MG TABLET PO SCH (08:50)
[2018-12-25] MEDS: METOPROLOL SUCCINATE 25 MG TABLET PO SCH ×2 (08:50→21:01)
[2018-12-25] MEDS: HYDROCORTISONE 10 MG TABLET PO SCH ×2 (08:50→21:01)
[2018-12-25] MEDS: THIAMINE 100 MG TABLET PO SCH ×2 (08:50→21:00)
[2018-12-25] MEDS: POLYETHYLENE GLYCOL 3350 17 GM PACKET PO SCH (08:51)
[2018-12-25] MEDS ORDERED: AZITHROMYCIN 250 MG TABLET PO SCH (09:00)
[2018-12-25] MEDS: LEVALBUTEROL 1.25 MG/3 ML NEB INH SCH ×4 (10:00→23:30)
[2018-12-25] MEDS: ALFUZOSIN HCL 10 MG PO SCH (12:51)
--- NOTE | 2018-12-25 14:18 | PROVIDER PROGRESS NOTE ---
Assessment/Plan - Problem List (1) Acute respiratory failure with hypoxia Assessment/Plan: Continue supplemental O2, nebs steroids, pulmonary toilet. (2) Pneumonia Assessment/Plan: Plan a 7-10 day course of antibiotics. Since this may be an aspiration PNA, his diet was assessed and altered and he will continue with this at [facility]. (3) Diarrhea Assessment/Plan: He reports several weeks of this. C. diff and bacterial cultures are neg. Will stop contact precautions and add anti-diarrheal agents. Continue gentle iv hydration. (4) Orthostatic hypotension Assessment/Plan: He still has symptomatic drop in BP. Continue Midodrine. Will add TEDS stockings to his SCDs. (5) Generalized weakness Assessment/Plan: PT ordered today to start with him. (6) Prostate CA Assessment/Plan: He is on management as per his Oncologist. (7) Anemia Assessment/Plan: Evaluate Iron panel, guiac stool, B12 and Folate levels and replace if low. (8) Hypokalemia Assessment/Plan: Replace. Follow daily BMP. (9) Paroxysmal A-fib Assessment/Plan: He is in NSR, but was in Afib and is therefore on Coumadin. Will restart Coumadin, follow daily INR, hold if >3. (10) Chronic systolic congestive heart failure, NYHA class 2 Assessment/Plan: Echo done yesterday shows no change in EF of 45%. Continue his meds for CHF: Metoprolol. He was not on KAYLA or ARB before admission, possibly because EF is not <40%.. - Current Meds Current Meds: Current Medications Generic Name Dose Route Start Last Admin Trade Name Bette PRN Reason Stop Dose Admin Acetaminophen 650 mg 12/24/18 11:44 12/25/18 13:08 Tylenol PO 650 mg Q4HR PRN Administration Pain 1 to 4 Azithromycin 250 mg 12/25/18 09:00 12/25/18 08:50 Zithromax PO 250 mg DAILY JOSÉ MIGUEL Administration Bupropion HCl 150 mg 12/24/18 21:00 12/25/18 08:50 Wellbutrin Sr PO 150 mg BID JOSÉ MIGUEL Administration Doxycycline Hyclate 100 mg 12/24/18 13:00 12/25/18 08:50 Vibramycin PO 100 mg BID JOSÉ MIGUEL Administration Famotidine 20 mg 12/24/18 21:00 12/25/18 08:49 Pepcid PO 20 mg DAILY JOSÉ MIGUEL Administration Folic Acid 1 mg 12/25/18 09:00 12/25/18 08:50 PO 1 mg DAILY JOSÉ MIGUEL Administration Hydrocortisone 10 mg 12/24/18 20:00 12/24/18 21:49 Cortef PO 10 mg DAILY@2000 JOSÉ MIGUEL Administration Hydrocortisone 20 mg 12/25/18 09:00 12/25/18 08:50 Cortef PO 20 mg DAILY JOSÉ MIGUEL Administration Levalbuterol HCl 1.25 mg 12/24/18 19:00 12/25/18 10:00 Xopenex INH 1.25 mg RTQID JOSÉ MIGUEL Administration Levothyroxine Sodium 25 mcg 12/25/18 07:00 12/25/18 06:44 Synthroid PO 25 mcg QDAC JOSÉ MIGUEL Administration Metoprolol Succinate 12.5 mg 12/24/18 21:00 12/25/18 08:50 Toprol Xl PO Not Given BID JOSÉ MIGUEL Midodrine 10 mg 12/24/18 14:00 12/25/18 13:08 PO 10 mg TID JOSÉ MIGUEL Administration Multivitamins/Minerals 1 tab 12/24/18 18:00 12/24/18 21:48 Theragran M PO 1 tab QDDINNER JOSÉ MIGUEL Administration Oxybutynin Chloride 5 mg 12/25/18 09:00 12/25/18 08:50 Ditropan PO 5 mg DAILY JOSÉ MIGUEL Administration Patient Own Med ( 1 each 12/25/18 09:00 12/25/18 12:51 Alfuzosin Hcl [ PO 1 each Alfuzosin Hcl Er] 10 DAILY JOSÉ MIGUEL Administration Mg) Patient Own Med ( 1 each 12/24/18 14:00 12/25/18 13:08 Ketoconazole [ PO 1 each Ketoconazole] 400 Mg TID JOSÉ MIGUEL Administration ) Polyethylene Glycol 17 gm 12/25/18 09:00 12/25/18 08:51 Miralax PO Not Given DAILY JOSÉ MIGUEL Sodium Chloride 10 ml 12/24/18 17:00 12/25/18 08:51 Normal Saline Flush 0.9% IVP 10 ml 0100,0900,1700 JOSÉ MIGUEL Administration Thiamine HCl 100 mg 12/24/18 21:00 12/25/18 08:50 Vitamin B-1 PO 100 mg BID JOSÉ MIGUEL Administration - Lab Result Fish Bone Diagrams: 12/25/18 05:20 12/25/18 05:20 - Additional Planning My Orders: My Active Orders 12/25/18 11:21 Infection Precautions - Discon [RC] .ONCE 12/26/18 05:00 BMP - BASIC METABOLIC PANEL [CHEM] DAILYLAB 12/27/18 05:00 BMP - BASIC METABOLIC PANEL [CHEM] DAILYLAB 12/28/18 05:00 BMP - BASIC METABOLIC PANEL [CHEM] DAILYLAB Subjective - Subjective Patient Reports: Resting Comfortably, Diarrhea (Still has liquid BM every time he urinates, this is unchanged for past 1 mo), Shortness of Breath (Still needing )2 rebreather mask) Objective Vital Signs: Vital Signs - 24 hr 12/24/18 12/24/18 12/24/18 16:00 20:23 21:37 Temperature 36.5 C 35.9 C L Heart Rate 59 L Heart Rate [ 74 87 Brachial] Heart Rate [ Sitting (After 1 Minute)] Heart Rate [ Sitting] Heart Rate [ Standing (After 1 Minute)] Heart Rate [ Supine] Respiratory 20 20 20 Rate Blood Pressure 113/79 107/92 H [Right Brachial artery] Blood Pressure [Sitting (After 1 Minute)] Blood Pressure [Sitting] Blood Pressure [Standing ( After 1 Minute) ] Blood Pressure [Supine] O2 Saturation 92 91 L 12/25/18 12/25/18 12/25/18 00:00 04:45 06:40 Temperature 36.4 C L 36.4 C L Heart Rate Heart Rate [ 75 67 Brachial] Heart Rate [ Sitting (After 1 Minute)] Heart Rate [ Sitting] Heart Rate [ Standing (After 1 Minute)] Heart Rate [ Supine] Respiratory 20 18 18 Rate Blood Pressure 113/85 H 120/66 [Right Brachial artery] Blood Pressure [Sitting (After 1 Minute)] Blood Pressure [Sitting] Blood Pressure [Standing ( After 1 Minute) ] Blood Pressure [Supine] O2 Saturation 94 93 92 12/25/18 12/25/18 12/25/18 06:47 08:00 08:35 Temperature 36.5 C Heart Rate Heart Rate [ 72 74 Brachial] Heart Rate [ 79 Sitting (After 1 Minute)] Heart Rate [ Sitting] Heart Rate [ 81 Standing (After 1 Minute)] Heart Rate [ 72 Supine] Respiratory 28 H Rate Blood Pressure 107/58 L 102/55 L [Right Brachial artery] Blood Pressure 92/52 L [Sitting (After 1 Minute)] Blood Pressure [Sitting] Blood Pressure 94/54 L [Standing ( After 1 Minute) ] Blood Pressure 102/55 L [Supine] O2 Saturation 95 12/25/18 12/25/18 12/25/18 10:00 11:35 13:00 Temperature 36.8 C Heart Rate 78 Heart Rate [ Brachial] Heart Rate [ Sitting (After 1 Minute)] Heart Rate [ 70 Sitting] Heart Rate [ Standing (After 1 Minute)] Heart Rate [ 74 Supine] Respiratory 18 22 Rate Blood Pressure 104/56 L [Right Brachial artery] Blood Pressure [Sitting (After 1 Minute)] Blood Pressure 97/59 L [Sitting] Blood Pressure [Standing ( After 1 Minute) ] Blood Pressure 104/56 L [Supine] O2 Saturation 92 Oxygen O2 Source Non-rebreather mask Oxygen Flow Rate 3 I&O (Last 24 Hrs): Intake and Output Totals x24h 12/23/18 12/24/18 12/25/18 23:59 23:59 23:59 Intake Total 2900 480 Output Total 1900 Balance 2900 -1420 General: Alert, Oriented x3, Other (Appears fatigued) HEENT: Mucous membr. moist/pink Neck: Supple Neuro: Non Focal Cardiovascular: Regular rate, No murmurs Respiratory: Breath sounds nml Abdomen: Soft, No tenderness Extremities: No edema - Results Results: Laboratory Results WBC 9.1 x10^3/uL (4.8-10.8) 12/25/18 05:20 RBC 3.60 10^6/uL (4.70-6.10) L 12/25/18 05:20 Hgb 10.9 g/dL (14.0-18.0) L 12/25/18 05:20 Hct 31.8 % (42.0-52.0) L 12/25/18 05:20 MCV 88.2 fL (80.0-94.0) 12/25/18 05:20 MCH 30.2 pg (27.0-31.0) 12/25/18 05:20 MCHC 34.2 g/dL (32.0-36.0) 12/25/18 05:20 RDW 16.2 % (12.0-15.0) H 12/25/18 05:20 Plt Count 209 10^3/uL (130-450) 12/25/18 05:20 MPV 6.9 fL (7.4-11.4) L 12/25/18 05:20 Neut # (Auto) 8.1 10^3/uL (1.5-6.6) H 12/25/18 05:20 Lymph # (Auto) 0.4 10^3/uL (1.5-3.5) L 12/25/18 05:20 [place] # (Auto) 0.5 10^3/uL (0.0-1.0) 12/25/18 05:20 Eos # (Auto) 0.1 10^3/uL (0.0-0.7) 12/25/18 05:20 Baso # (Auto) 0.0 10^3/uL (0.0-0.1) 12/25/18 05:20 Absolute Nucleated RBC 0.01 x10^3/uL 12/25/18 05:20 Nucleated RBC % 0.1 /100WBC 12/25/18 05:20 PT 40.9 secs (9.9-12.6) H 12/25/18 05:20 INR 3.7 (0.8-1.2) H 12/25/18 05:20 Sodium 136 mmol/L (135-145) 12/25/18 05:20 Potassium 3.3 mmol/L (3.5-5.0) L 12/25/18 05:20 Chloride 105 mmol/L (101-111) 12/25/18 05:20 Carbon Dioxide 21 mmol/L (21-32) 12/25/18 05:20 Anion Gap 10.0 (6-13) 12/25/18 05:20 BUN 16 mg/dL (6-20) 12/25/18 05:20 Creatinine 0.6 mg/dL (0.6-1.2) 12/25/18 05:20 Estimated GFR (MDRD) 128 (>89) 12/25/18 05:20 Glucose 177 mg/dL (70-100) H 12/25/18 05:20 Lactic Acid 0.8 mmol/L (0.5-2.2) 12/24/18 10:56 Calcium 8.7 mg/dL (8.5-10.3) 12/25/18 05:20 Phosphorus 1.8 mg/dL (2.5-4.6) L 12/25/18 05:20 Magnesium 2.0 mg/dL (1.7-2.8) 12/24/18 08:24 Total Bilirubin 1.3 mg/dL (0.2-1.0) H 12/24/18 08:24 AST 21 IU/L (10-42) 12/24/18 08:24 ALT 14 IU/L (10-60) 12/24/18 08:24 Alkaline Phosphatase 54 IU/L (42-121) 12/24/18 08:24 Troponin I < 0.04 ng/mL (<0.49) 12/24/18 08:24 B-Natriuretic Peptide 320 pg/mL (5-100) H 12/24/18 08:24 Total Protein 6.7 g/dL (6.7-8.2) 12/24/18 08:24 Albumin 2.8 g/dL (3.2-5.5) L 12/25/18 05:20 Globulin 3.7 g/dL (2.1-4.2) 12/24/18 08:24 Albumin/Globulin Ratio 0.8 (1.0-2.2) L 12/24/18 08:24 Lipase 20 U/L (22-51) L 12/24/18 08:24 TSH 2.91 uIU/mL (0.34-5.60) 12/24/18 08:24 Cortisol 47.2 ug/dL 12/24/18 08:24 C. difficile Tox B Gene NEGATIVE (NEGATIVE) 12/24/18 08:55 Influenza A (Rapid) Negative (Negative) 12/24/18 09:24 Influenza B (Rapid) Negative (Negative) 12/24/18 09:24 - Procedures Procedures: Procedures REPLACEMENT OF LEFT LENS WITH SYNTH SUB, PERC APPROACH (05/11/16) Sepsis Event Note (H) - Evaluation Current Stage of Sepsis: Ruled out Possible source of Sepsis: positive: Pulmonary
[2018-12-25] MEDS ORDERED: LOPERAMIDE 2 MG CAPSULE PO PRN (15:30)
[2018-12-25] MEDS: SACCHAROMYCES BOULARDII 250 MG CAPSULE PO SCH (17:31)
[2018-12-25] MEDS: MULTIVITAMIN W/MINERALS TABLET PO SCH (17:31)
[2018-12-26] MEDS: SODIUM CHLORIDE FLUSH 0.9% 10 ML SYRINGE IVP SCH ×4 (00:23→23:51)
[2018-12-26] MEDS: ACETAMINOPHEN 325 MG TABLET PO PRN ×3 (00:23→14:17)
[2018-12-26 05:40] LABS: CALCIUM 8.6 mg/dL (8.5-10.3); CREATININE 0.8 mg/dL (0.6-1.2)
[2018-12-26 05:54] LABS: BASOPHILS % (AUTO) 0.3 %; HGB - HEMOGLOBIN 10.5 g/dL (14.0-18.0); LYMPHOCYTES # (AUTO) 0.5 10^3/uL (1.5-3.5); LYMPHOCYTES % (AUTO) 3.4 %; MEAN CORPUSCULAR HEMOGLOBIN 28.9 pg (27.0-31.0); MEAN CORPUSCULAR VOLUME 87.8 fL (80.0-94.0); MEAN PLATELET VOLUME 7.1 fL (7.4-11.4); MONOCYTES # (AUTO) 0.8 10^3/uL (0.0-1.0); MONOCYTES % (AUTO) 5.9 %; NEUTROPHILS # (AUTO) 12.2 10^3/uL (1.5-6.6); NEUTROPHILS % (AUTO) 90.4 %; PLT - PLATELET COUNT 249 10^3/uL (130-450); RED BLOOD COUNT 3.62 10^6/uL (4.70-6.10); RED CELL DISTRIBUTION WIDTH 16.6 % (12.0-15.0); WHITE BLOOD COUNT 13.5 x10^3/uL (4.8-10.8)
[2018-12-26 06:00] LABS: PT - PROTHROMBIN TIME 49.8 secs (9.9-12.6)
[2018-12-26 06:09] LABS: INR 4.5 (0.8-1.2)
[2018-12-26] MEDS ORDERED: PHYTONADIONE 10 MG/ML AMP IVP STA (06:30)
[2018-12-26] MEDS: MIDODRINE 2.5 MG TABLET PO SCH ×2 (06:41→14:17)
[2018-12-26] MEDS: LEVOTHYROXINE 25 MCG TABLET PO SCH (06:41)
[2018-12-26] MEDS ORDERED: PHYTONADIONE INJ (ADULT) 5 MG in SODIUM CHLORIDE 0.9% 50 ML IV ONE (07:00)
[2018-12-26] MEDS ORDERED: POTASSIUM CHLORIDE 20 MEQ TABLET PO SCH (08:31)
[2018-12-26] MEDS: HYDROCORTISONE 10 MG TABLET PO SCH (09:16)
[2018-12-26] MEDS: FOLIC ACID 1 MG TABLET PO SCH (09:16)
[2018-12-26] MEDS: buPROPion SR 150 MG TABLET PO SCH ×2 (09:16→21:21)
[2018-12-26] MEDS: METOPROLOL SUCCINATE 25 MG TABLET PO SCH (09:16)
[2018-12-26] MEDS: OXYBUTYNIN 5MG TABLET PO SCH (09:16)
[2018-12-26] MEDS: SACCHAROMYCES BOULARDII 250 MG CAPSULE PO SCH ×2 (09:16→17:34)
[2018-12-26] MEDS: THIAMINE 100 MG TABLET PO SCH ×2 (09:16→21:21)
[2018-12-26] MEDS: ALFUZOSIN HCL 10 MG PO SCH (09:17)
[2018-12-26] MEDS: FAMOTIDINE 20 MG TABLET PO SCH (09:17)
[2018-12-26] MEDS: LEVALBUTEROL 1.25 MG/3 ML NEB INH SCH ×4 (09:30→21:13)
[2018-12-26] MEDS: POLYETHYLENE GLYCOL 3350 17 GM PACKET PO SCH (09:48)
--- NOTE | 2018-12-26 13:43 | PROVIDER PROGRESS NOTE ---
Assessment/Plan - Problem List (1) Acute respiratory failure with hypoxia Assessment/Plan: He still desaturated, trying PT, to 79% despite 15L O2 per oximizer today. This is unlikely to be a pulmonary embolism with therapeutic INRs since he has been here. Will obtain a CXR, US of chest and ABG>> The CXR showed worsening bilateral infiltrates, ultrasound showed minimal bilateral pleural effusions and ABG showed pO2 of only 36, on 15L oximizer or ventimask. Will transfer to ICU for BIPAP use. Will increase pulmonary toilet with Acapella device. Follow CXR daily. Treat pneumonia. (2) Pneumonia Qualifiers: Pneumonia type: aspiration pneumonia Assessment/Plan: CXR shows worsening infiltrates, now bilateral. WBC went up, but possibly from steroid use. Will broaden the antibiotic coverage, to include possible aspiration pneumonia. Recheck a sputum sample. Follow CXR daily. Follow CBC daily. (3) Diarrhea Assessment/Plan: Imodium ordered prn, starting yesterday and already the stool was less liquid today. (4) Orthostatic hypotension Assessment/Plan: I discussed with patient, and daughter at length today. It started about 2 years ago and he was seen once by Neurology to evaluate "vertigo". He was never tested for Parkinson's or autonomic dysfunction. He wears TEDS stockings daily already. He was started on Midodrine here for the first time, and never was on Flurinef or Northera. I will decrease his Metoprolol dose back to daily, due to marked symptomatic postural BP drop. Since his BNP is not increasing and CXR did not show worsening pulmonary edema, will add Flurinef cautiously. Monitor serum K daily. Will also give several days of stress steroids, since he was on mcc Hydrocortisone at home. Check a lactic acid level. (5) Generalized weakness Assessment/Plan: Patient deconditioned and orthostatic and weak from his cancer treatment. PT will be on hold, whike in ICU. (6) Prostate CA Assessment/Plan: His 3 meds for prostate CA were cobtinued at admission, last night the Ketocanazole was stopped, possibly since it may be adding to the elevated INR. (7) Anemia Qualifiers: Anemia type: iron deficiency Assessment/Plan: Evaluate Iron panel, guiac stool, B12 and Folate levels and replace if low (8) Hypokalemia Assessment/Plan: Replace and follow BMP daily. (9) Paroxysmal A-fib Assessment/Plan: He is in NSR,. Plan to use Coumadin to achieve a therapeutic INR. Follow INR daily. (10) Chronic systolic congestive heart failure, NYHA class 2 Assessment/Plan: Since his BNP is not increasing and CXR did not show worsening pulmonary edema, will add Flurinef cautiously. The LVEF by Echo done this admission was 45%. (11) Supratherapeutic INR Assessment/Plan: Vitamin K 5 mg was given and the Ketocanazole stopped. Will rstart the Ketoconazole and adjust the Coumadin dose down. Follow INR daily. (12) Hypothyroidism Assessment/Plan: Continue his home Levothyroxine dose, as the TSH was at an acceptable level. - Current Meds Current Meds: Current Medications Generic Name Dose Route Start Last Admin Trade Name Freq PRN Reason Stop Dose Admin Acetaminophen 650 mg 12/24/18 11:44 12/26/18 09:16 Tylenol PO 650 mg Q4HR PRN Administration Pain 1 to 4 Bupropion HCl 150 mg 12/24/18 21:00 12/26/18 09:16 Wellbutrin Sr PO 150 mg BID JOSÉ MIGUEL Administration Famotidine 20 mg 12/24/18 21:00 12/26/18 09:17 Pepcid PO 20 mg DAILY JOSÉ MIGUEL Administration Folic Acid 1 mg 12/25/18 09:00 12/26/18 09:16 PO 1 mg DAILY JOSÉ MIGUEL Administration Hydrocortisone 10 mg 12/24/18 20:00 12/25/18 21:01 Cortef PO 10 mg DAILY@2000 JOSÉ MIGUEL Administration Hydrocortisone 20 mg 12/25/18 09:00 12/26/18 09:16 Cortef PO 20 mg DAILY JOSÉ MIGUEL Administration Levalbuterol HCl 1.25 mg 12/24/18 19:00 12/26/18 09:30 Xopenex INH 1.25 mg RTQID JOSÉ MIGUEL Administration Levothyroxine Sodium 25 mcg 12/25/18 07:00 12/26/18 06:41 Synthroid PO 25 mcg QDAC JOSÉ MIGUEL Administration Metoprolol Succinate 12.5 mg 12/24/18 21:00 12/26/18 09:16 Toprol Xl PO 12.5 mg BID JOSÉ MIGUEL Administration Midodrine 10 mg 12/24/18 14:00 12/26/18 06:41 PO 10 mg TID JOSÉ MIGUEL Administration Multivitamins/Minerals 1 tab 12/24/18 18:00 12/25/18 17:31 Theragran M PO 1 tab QDDINNER JOSÉ MIGUEL Administration Oxybutynin Chloride 5 mg 12/25/18 09:00 12/26/18 09:16 Ditropan PO 5 mg DAILY JOSÉ MIGUEL Administration Patient Own Med ( 1 each 12/25/18 09:00 12/26/18 09:17 Alfuzosin Hcl [ PO 1 each Alfuzosin Hcl Er] 10 DAILY JOSÉ MIGUEL Administration Mg) Polyethylene Glycol 17 gm 12/25/18 09:00 12/26/18 09:48 Miralax PO Not Given DAILY JOSÉ MIGUEL Saccharomyces Boulardii 250 mg 12/25/18 17:00 12/26/18 09:16 Florastor PO 250 mg BIDWM JOSÉ MIGUEL Administration Sodium Chloride 10 ml 12/24/18 17:00 12/26/18 12:32 Normal Saline Flush 0.9% IVP Not Given 0100,0900,1700 JOSÉ MIGUEL Thiamine HCl 100 mg 12/24/18 21:00 12/26/18 09:16 Vitamin B-1 PO 100 mg BID JOSÉ MIGUEL Administration - Lab Result Fish Bone Diagrams: 12/26/18 05:05 12/26/18 05:05 - Additional Planning My Orders: My Active Orders 12/25/18 15:30 Loperamide [Imodium] 2 mg PO QID PRN 12/25/18 17:00 Saccharomyces Boulardii [Florastor] 250 mg PO BIDWM 12/25/18 18:01 Yash Hose and Compression Devic [RC] Q8H 12/26/18 ABG - ARTERIAL BLOOD GAS [BG] Stat 12/26/18 11:29 Chest [US] Stat 12/26/18 12:57 Arterial Blood Gases - RT [RC] .ONCE 12/26/18 12:58 Chest 1 View X-Ray [XR] Routine 12/27/18 05:00 BMP - BASIC METABOLIC PANEL [CHEM] DAILYLAB 12/28/18 05:00 BMP - BASIC METABOLIC PANEL [CHEM] DAILYLAB Subjective - Subjective Patient Reports: Shortness of Breath, Other (More fatigued) Objective Vital Signs: Vital Signs - 24 hr 12/25/18 12/25/18 12/25/18 15:15 16:00 18:10 Temperature 36.4 C L Heart Rate 84 79 Heart Rate [ Activity] Heart Rate [ 81 Brachial] Heart Rate [ Sitting (After 1 Minute)] Heart Rate [ Sitting] Heart Rate [ Standing (After 1 Minute)] Heart Rate [ Standing] Heart Rate [ Supine] Respiratory 18 22 20 Rate Blood Pressure [Activity] Blood Pressure 104/56 L [Right Brachial artery] Blood Pressure [Sitting (After 1 Minute)] Blood Pressure [Sitting] Blood Pressure [Standing ( After 1 Minute) ] Blood Pressure [Standing] Blood Pressure [Supine] O2 Saturation 96 12/25/18 12/25/18 12/26/18 20:23 23:30 00:28 Temperature 36.1 C L 36.4 C L Heart Rate 84 Heart Rate [ Activity] Heart Rate [ 84 84 Brachial] Heart Rate [ 83 Sitting (After 1 Minute)] Heart Rate [ Sitting] Heart Rate [ 97 Standing (After 1 Minute)] Heart Rate [ Standing] Heart Rate [ 82 Supine] Respiratory 22 18 22 Rate Blood Pressure [Activity] Blood Pressure 121/65 110/51 L [Right Brachial artery] Blood Pressure 121/65 [Sitting (After 1 Minute)] Blood Pressure [Sitting] Blood Pressure 93/56 L [Standing ( After 1 Minute) ] Blood Pressure [Standing] Blood Pressure 110/60 [Supine] O2 Saturation 91 L 92 12/26/18 12/26/18 12/26/18 04:05 06:42 07:56 Temperature 36.7 C 36.4 C L Heart Rate Heart Rate [ Activity] Heart Rate [ 77 75 71 Brachial] Heart Rate [ Sitting (After 1 Minute)] Heart Rate [ Sitting] Heart Rate [ Standing (After 1 Minute)] Heart Rate [ Standing] Heart Rate [ Supine] Respiratory 20 32 H Rate Blood Pressure [Activity] Blood Pressure 120/58 L 119/56 L 130/67 [Right Brachial artery] Blood Pressure [Sitting (After 1 Minute)] Blood Pressure [Sitting] Blood Pressure [Standing ( After 1 Minute) ] Blood Pressure [Standing] Blood Pressure [Supine] O2 Saturation 93 93 12/26/18 12/26/18 12/26/18 09:30 10:13 10:20 Temperature Heart Rate 75 Heart Rate [ 97 Activity] Heart Rate [ Brachial] Heart Rate [ 104 H Sitting (After 1 Minute)] Heart Rate [ 104 H Sitting] Heart Rate [ 101 H Standing (After 1 Minute)] Heart Rate [ 101 H Standing] Heart Rate [ 83 83 Supine] Respiratory 22 Rate Blood Pressure 98/61 [Activity] Blood Pressure [Right Brachial artery] Blood Pressure 93/53 L [Sitting (After 1 Minute)] Blood Pressure 93/53 L [Sitting] Blood Pressure 89/57 L [Standing ( After 1 Minute) ] Blood Pressure 89/57 L [Standing] Blood Pressure 116/54 L 116/54 L [Supine] O2 Saturation Oxygen O2 Source Non-rebreather mask Oxygen Flow Rate 3 I&O (Last 24 Hrs): Intake and Output Totals x24h 12/24/18 12/25/18 12/26/18 23:59 23:59 23:59 Intake Total 2900 730 440.5 Output Total 2350 400 Balance 2900 -1620 40.5 General: Alert, Oriented x3 HEENT: Atraumatic, Mucous membr. moist/pink Neck: Supple Neuro: Alert, Non Focal Cardiovascular: Regular rate Respiratory: Other (Wet, non-productive cough, diminished bilateral bases, no rales or wheezing.) Abdomen: Soft Extremities: No edema - Results Results: Laboratory Results WBC 13.5 x10^3/uL (4.8-10.8) H 12/26/18 05:05 RBC 3.62 10^6/uL (4.70-6.10) L 12/26/18 05:05 Hgb 10.5 g/dL (14.0-18.0) L 12/26/18 05:05 Hct 31.8 % (42.0-52.0) L 12/26/18 05:05 MCV 87.8 fL (80.0-94.0) 12/26/18 05:05 MCH 28.9 pg (27.0-31.0) 12/26/18 05:05 MCHC 33.0 g/dL (32.0-36.0) 12/26/18 05:05 RDW 16.6 % (12.0-15.0) H 12/26/18 05:05 Plt Count 249 10^3/uL (130-450) 12/26/18 05:05 MPV 7.1 fL (7.4-11.4) L 12/26/18 05:05 Neut # (Auto) 12.2 10^3/uL (1.5-6.6) H 12/26/18 05:05 Lymph # (Auto) 0.5 10^3/uL (1.5-3.5) L 12/26/18 05:05 [place] # (Auto) 0.8 10^3/uL (0.0-1.0) 12/26/18 05:05 Eos # (Auto) 0.0 10^3/uL (0.0-0.7) 12/26/18 05:05 Baso # (Auto) 0.0 10^3/uL (0.0-0.1) 12/26/18 05:05 Absolute Nucleated RBC 0.00 x10^3/uL 12/26/18 05:05 Nucleated RBC % 0.0 /100WBC 12/26/18 05:05 PT 49.8 secs (9.9-12.6) H 12/26/18 05:05 INR 4.5 (0.8-1.2) H* 12/26/18 05:05 Sodium 137 mmol/L (135-145) 12/26/18 05:05 Potassium 3.4 mmol/L (3.5-5.0) L 12/26/18 05:05 Chloride 107 mmol/L (101-111) 12/26/18 05:05 Carbon Dioxide 21 mmol/L (21-32) 12/26/18 05:05 Anion Gap 9.0 (6-13) 12/26/18 05:05 BUN 28 mg/dL (6-20) H 12/26/18 05:05 Creatinine 0.8 mg/dL (0.6-1.2) 12/26/18 05:05 Estimated GFR (MDRD) 92 (>89) 12/26/18 05:05 Glucose 148 mg/dL (70-100) H 12/26/18 05:05 Lactic Acid 0.8 mmol/L (0.5-2.2) 12/24/18 10:56 Calcium 8.6 mg/dL (8.5-10.3) 12/26/18 05:05 Phosphorus 1.8 mg/dL (2.5-4.6) L 12/25/18 05:20 Magnesium 2.0 mg/dL (1.7-2.8) 12/24/18 08:24 Total Bilirubin 1.3 mg/dL (0.2-1.0) H 12/24/18 08:24 AST 21 IU/L (10-42) 12/24/18 08:24 ALT 14 IU/L (10-60) 12/24/18 08:24 Alkaline Phosphatase 54 IU/L (42-121) 12/24/18 08:24 Troponin I < 0.04 ng/mL (<0.49) 12/24/18 08:24 B-Natriuretic Peptide 317 pg/mL (5-100) H 12/26/18 11:52 Total Protein 6.7 g/dL (6.7-8.2) 12/24/18 08:24 Albumin 2.8 g/dL (3.2-5.5) L 12/25/18 05:20 Globulin 3.7 g/dL (2.1-4.2) 12/24/18 08:24 Albumin/Globulin Ratio 0.8 (1.0-2.2) L 12/24/18 08:24 Lipase 20 U/L (22-51) L 12/24/18 08:24 TSH 2.91 uIU/mL (0.34-5.60) 12/24/18 08:24 Cortisol 47.2 ug/dL 12/24/18 08:24 C. difficile Tox B Gene NEGATIVE (NEGATIVE) 12/24/18 08:55 Influenza A (Rapid) Negative (Negative) 12/24/18 09:24 Influenza B (Rapid) Negative (Negative) 12/24/18 09:24 - Procedures Procedures: Procedures REPLACEMENT OF LEFT LENS WITH SYNTH SUB, PERC APPROACH (05/11/16) Sepsis Event Note (H) - Evaluation Current Stage of Sepsis: Ruled out Possible source of Sepsis: positive: Pulmonary
[2018-12-26] MEDS ORDERED: WARFARIN 1 MG TABLET PO SCH (14:00)
--- NOTE | 2018-12-26 14:06 | Ultrasound Report ---
Reason: SOB and worse O2 desaturations Procedure Date: 12/26/2018 Accession Number: [id number] / [id number] Procedure: US - Chest CPT Code: FULL RESULT: EXAM: CHEST ULTRASOUND EXAM DATE: 12/26/2018 12:55 PM. CLINICAL HISTORY: Shortness of breath with worsening oxygen desaturations. COMPARISON: CHEST 1 VIEW 12/24/2018 8:25 AM. TECHNIQUE: Real-time chest ultrasound by workers compensation manager with static images saved for review. FINDINGS: Small left pleural effusion with adjacent lower lobe atelectasis. Minimal right pleural effusion. IMPRESSION: Small left and minimal right pleural effusions. RADIA
[2018-12-26 14:22] LABS: ABG PCO2 27 mmHg (34-45); ABG PH 7.47 (7.35-7.45)
[2018-12-26 14:23] LABS: ABG HCO3 19.6 mmol/L (22.0-26.0); ALLEN TEST POSITIVE
[2018-12-26 14:27] LABS: ABG OXYGEN SATURATION 71 % (94-98); ABG PO2 34 mmHg (80-100)
[2018-12-26] MEDS: MORPHINE 2 MG/ML SYRINGE IVP PRN (15:42)
--- NOTE | 2018-12-26 15:56 | XRAY Report ---
Reason: SOB and desaturation worse Procedure Date: 12/26/2018 Accession Number: [id number] / [id number] Procedure: XR - Chest 1 View X-Ray CPT Code: 07312 FULL RESULT: EXAM: CHEST RADIOGRAPHY EXAM DATE: 12/26/2018 03:27 PM. CLINICAL HISTORY: Shortness of breath and desaturation worse. COMPARISON: CHEST 1 VIEW 12/24/2018 8:25 AM. TECHNIQUE: 1 view. FINDINGS: Lungs/Pleura: The lungs remain low. Interval worsening of reticular opacification of both lung schumacher diffusely. No large pleural effusion or pneumothorax is detected. Mediastinum: Within exam limitations, the cardiomediastinal contour is normal. Other: None. IMPRESSION: Interval worsening of bilateral pulmonary opacities. RADIA
[2018-12-26 17:07] LABS: ABG BASE EXCESS -0.1 mmol/L (-2.0-3.0); ABG HCO3 22.5 mmol/L (22.0-26.0); ABG OXYGEN SATURATION 97 % (94-98); ABG PCO2 30 mmHg (34-45); ABG PH 7.49 (7.35-7.45); ABG PO2 94 mmHg (80-100); ABG TCO2 23.4 MMOL/L (21.0-29.0)
[2018-12-26 17:08] LABS: ALLEN TEST POSITIVE
[2018-12-26] MEDS: MULTIVITAMIN W/MINERALS TABLET PO SCH (17:34)
--- NOTE | 2018-12-26 18:09 | ANESTHESIA PROCEDURE NOTE ---
Height and Weight: Height 5 ft 10 in Weight (kg) 106 kg Body Mass Index 33.5 Vital Signs: Temp Pulse Resp BP Pulse Ox 36.6 C 74 31 H 142/75 H 98 12/26/18 17:00 12/26/18 17:20 12/26/18 17:20 12/26/18 17:00 12/26/18 17:00 Allergies tamsulosin Allergy (Verified 10/15/18 09:54) Dizziness clindamycin Adverse Reaction (Severe, Verified 10/15/18 09:54) chest pain R side KAYLA Inhibitors Adverse Reaction (Intermediate, Verified 12/24/18 08:18) unknown - appeared in his records Procedure Notes: Called for difficult IV start. #20G IV started to left forearm x 2 attempts. Patient tolerated well
[2018-12-26] MEDS: methylPREDNISolone SUCCINATE 40 MG/ML VIAL IVP SCH ×2 (18:13→21:20)
[2018-12-26] MEDS: AMPICILLIN/SULBACTAM 3 GM in SODIUM CHLORIDE 0.9% MINIBAG 100 ML IV SCH ×3 (18:25→23:51)
[2018-12-26] MEDS: FLUDROCORTISONE 0.1 MG TABLET PO SCH (21:21)
[2018-12-26] MEDS: KETOCONAZOLE PO SCH (21:24)
[2018-12-27] MEDS: MORPHINE 2 MG/ML SYRINGE IVP PRN ×5 (02:43→22:23)
[2018-12-27] MEDS: MIDODRINE 2.5 MG TABLET PO SCH ×4 (02:53→21:48)
[2018-12-27] MEDS: AMPICILLIN/SULBACTAM 3 GM in SODIUM CHLORIDE 0.9% MINIBAG 100 ML IV SCH ×3 (05:29→17:49)
[2018-12-27] MEDS: KETOCONAZOLE PO SCH ×3 (05:30→21:49)
[2018-12-27] MEDS: methylPREDNISolone SUCCINATE 40 MG/ML VIAL IVP SCH ×3 (05:30→21:55)
[2018-12-27] MEDS: LEVOTHYROXINE 25 MCG TABLET PO SCH (05:30)
[2018-12-27 05:36] LABS: BASOPHILS % (AUTO) 0.1 %; HGB - HEMOGLOBIN 10.8 g/dL (14.0-18.0); LYMPHOCYTES # (AUTO) 0.4 10^3/uL (1.5-3.5); LYMPHOCYTES % (AUTO) 3.1 %; MEAN CORPUSCULAR HEMOGLOBIN 28.7 pg (27.0-31.0); MEAN CORPUSCULAR HGB CONC 32.7 g/dL (32.0-36.0); MEAN CORPUSCULAR VOLUME 87.7 fL (80.0-94.0); MONOCYTES # (AUTO) 0.6 10^3/uL (0.0-1.0); MONOCYTES % (AUTO) 4.7 %; NEUTROPHILS # (AUTO) 12.2 10^3/uL (1.5-6.6); NEUTROPHILS % (AUTO) 92.1 %; PLT - PLATELET COUNT 195 10^3/uL (130-450); RED BLOOD COUNT 3.78 10^6/uL (4.70-6.10); RED CELL DISTRIBUTION WIDTH 16.5 % (12.0-15.0); WHITE BLOOD COUNT 13.2 x10^3/uL (4.8-10.8)
[2018-12-27 05:43] LABS: CALCIUM 8.5 mg/dL (8.5-10.3); CREATININE 0.7 mg/dL (0.6-1.2)
[2018-12-27 05:58] LABS: INR 1.5 (0.8-1.2); PT - PROTHROMBIN TIME 17.4 secs (9.9-12.6)
[2018-12-27] MEDS: LEVALBUTEROL 1.25 MG/3 ML NEB INH SCH ×4 (05:59→20:46)
--- NOTE | 2018-12-27 06:50 | XRAY Report ---
Reason: F/U pulmonary infiltrates Procedure Date: 12/27/2018 Accession Number: [id number] / [id number] Procedure: XR - Chest 1 View X-Ray CPT Code: 16373 FULL RESULT: EXAM: CHEST RADIOGRAPHY EXAM DATE: 12/27/2018 06:16 AM. CLINICAL HISTORY: F/U pulmonary infiltrates. COMPARISON: CHEST 1 VIEW 12/26/2018 3:13 PM. TECHNIQUE: 1 view. FINDINGS: Lungs/Pleura: Right lung opacities appear slightly worse. Left lung opacities are unchanged or slightly improved. There may be trace pleural effusions. No pneumothorax seen. Mediastinum: Within exam limitations, the cardiomediastinal contour is stable. Other: None. IMPRESSION: 1. Bilateral pulmonary opacities, slightly worse on the right and unchanged or slightly improved on the left compared with the prior chest radiograph. 2. Possible trace pleural effusions. RADIA
[2018-12-27 08:00] LABS: BASOPHILS % (AUTO) 0.2 %; LYMPHOCYTES # (AUTO) 0.3 10^3/uL (1.5-3.5); MEAN CORPUSCULAR HEMOGLOBIN 28.7 pg (27.0-31.0); MEAN CORPUSCULAR HGB CONC 33.2 g/dL (32.0-36.0); MEAN CORPUSCULAR VOLUME 86.6 fL (80.0-94.0); MEAN PLATELET VOLUME 6.7 fL (7.4-11.4); MONOCYTES # (AUTO) 0.9 10^3/uL (0.0-1.0); MONOCYTES % (AUTO) 6.5 %; NEUTROPHILS # (AUTO) 12.6 10^3/uL (1.5-6.6); NEUTROPHILS % (AUTO) 91.3 %; PLT - PLATELET COUNT 171 10^3/uL (130-450); RED BLOOD COUNT 3.84 10^6/uL (4.70-6.10); RED CELL DISTRIBUTION WIDTH 16.7 % (12.0-15.0); WHITE BLOOD COUNT 13.8 x10^3/uL (4.8-10.8)
[2018-12-27 08:05] LABS: CALCIUM 8.6 mg/dL (8.5-10.3); CREATININE 0.7 mg/dL (0.6-1.2)
[2018-12-27] MEDS: SODIUM CHLORIDE FLUSH 0.9% 10 ML SYRINGE IVP SCH ×2 (08:06→17:45)
[2018-12-27] MEDS ORDERED: METOPROLOL SUCCINATE 25 MG TABLET PO SCH (09:00)
[2018-12-27] MEDS: FAMOTIDINE 20 MG TABLET PO SCH (10:29)
[2018-12-27] MEDS: buPROPion SR 150 MG TABLET PO SCH ×2 (10:29→21:48)
[2018-12-27] MEDS: SACCHAROMYCES BOULARDII 250 MG CAPSULE PO SCH ×2 (10:30→17:43)
[2018-12-27] MEDS: FOLIC ACID 1 MG TABLET PO SCH (10:31)
[2018-12-27] MEDS: FLUDROCORTISONE 0.1 MG TABLET PO SCH ×2 (10:31→21:48)
[2018-12-27] MEDS: THIAMINE 100 MG TABLET PO SCH ×2 (10:32→21:48)
[2018-12-27] MEDS: ALFUZOSIN HCL 10 MG PO SCH (10:37)
[2018-12-27] MEDS: OXYBUTYNIN 5MG TABLET PO SCH (10:37)
[2018-12-27] MEDS: POLYETHYLENE GLYCOL 3350 17 GM PACKET PO SCH (10:37)
[2018-12-27] MEDS ORDERED: LORazepam 0.5 MG TABLET PO PRN (10:48)
--- NOTE | 2018-12-27 13:44 | PROVIDER PROGRESS NOTE ---
Assessment/Plan - Problem List (1) Left arm weakness Assessment/Plan: Head CT STAT for stroke evaluation. He says an MRI makes him claustrophobic. Patient is concerned about his multiple medical problems and being a burden on his family. (2) Acute respiratory failure with hypoxia Assessment/Plan: After he worsened yesterday, and moved to ICU, the W/U showed a spread of his pneumonia to bilateral. Today the CXR shows slight improvement of the L sided infiltrate, unchanged R infiltrate and minimal bilateral pleural effusions. He is still requiring BIPAP O2 support in ICU. (3) Pneumonia Qualifiers: Pneumonia type: aspiration pneumonia Assessment/Plan: Bilateral infiltrates since yesterday. IV antibiotic was broadened starting yesterday. Continue nebs, high dose steroids adjusted yesterday, and pulmonary toilet. (4) Diarrhea Assessment/Plan: Improved over past 2 days. (5) Orthostatic hypotension Assessment/Plan: During his ICU stay, no OOB or orthostatic checks are needed. Midodrine 10 mg tid continues and Florinef was added yesterday. (6) Generalized weakness Assessment/Plan: PT is on hold while on BIPAP and worsened pneumonia. (7) Prostate CA Assessment/Plan: He was on 3 meds for managing this before admission. (8) Anemia Qualifiers: Anemia type: iron deficiency Assessment/Plan: Oral iron replacement started several days ago. (9) Paroxysmal A-fib Assessment/Plan: Coumadin ordered, hold if daily INR check is >3. (10) Chronic systolic congestive heart failure, NYHA class 2 Assessment/Plan: LVEF is 45%. He received no iv hydration despute diarrhea, to prevent volume overload. Will follow CXR daily, BNP intermittently. (11) Supratherapeutic INR Assessment/Plan: Coumadin ordered buut on hold if daily INR check >3. (12) Hypothyroidism Assessment/Plan: Pt on his home med dose (13) Hypokalemia Assessment/Plan: Resolved with replacement. Follow BMP daily. - Current Meds Current Meds: Current Medications Generic Name Dose Route Start Last Admin Trade Name Freq PRN Reason Stop Dose Admin Acetaminophen 650 mg 12/24/18 11:44 12/26/18 14:17 Tylenol PO 650 mg Q4HR PRN Administration Pain 1 to 4 Bupropion HCl 150 mg 12/24/18 21:00 12/27/18 10:29 Wellbutrin Sr PO 150 mg BID JOSÉ MIGUEL Administration Famotidine 20 mg 12/24/18 21:00 12/27/18 10:29 Pepcid PO 20 mg DAILY JOSÉ MIGUEL Administration Fludrocortisone Acetate 0.1 mg 12/26/18 21:00 12/27/18 10:31 Florinef PO 0.1 mg BID JOSÉ MIGUEL Administration Folic Acid 1 mg 12/25/18 09:00 12/27/18 10:31 PO 1 mg DAILY JOSÉ MIGUEL Administration Ampicillin Sodium/Sulbactam 100 mls @ 200 mls/hr 12/26/18 16:34 12/27/18 12:01 Sodium 3 gm/ Sodium Chloride IV 200 mls/hr Q6HR JOSÉ MIGUEL Administration Levalbuterol HCl 1.25 mg 12/24/18 19:00 12/27/18 10:04 Xopenex INH 1.25 mg RTQID JOSÉ MIGUEL Administration Levothyroxine Sodium 25 mcg 12/25/18 07:00 12/27/18 05:30 Synthroid PO Not Given QDAC JOSÉM IGUEL Lorazepam 0.5 mg 12/27/18 10:48 12/27/18 12:28 Ativan PO 0.5 mg Q8H PRN Administration Anxiety Methylprednisolone 80 mg 12/26/18 17:00 12/27/18 05:30 Solu-Medrol (40mg Vial) IVP 80 mg TID JOSÉ MIGUEL Administration Metoprolol Succinate 12.5 mg 12/27/18 09:00 12/27/18 10:30 Toprol Xl PO 12.5 mg DAILY JOSÉ MIGUEL Administration Midodrine 10 mg 12/24/18 14:00 12/27/18 05:30 PO Not Given TID JOSÉ MIGUEL Morphine Sulfate 2 mg 12/26/18 15:16 12/27/18 12:08 Morphine IVP 2 mg Q2H PRN Administration Dyspnea Multivitamins/Minerals 1 tab 12/24/18 18:00 12/26/18 17:34 Theragran M PO Not Given QDDINNER JOSÉ MIGUEL Oxybutynin Chloride 5 mg 12/25/18 09:00 12/27/18 10:37 Ditropan PO Not Given DAILY JOSÉ MIGUEL Patient Own Med ( 1 each 12/25/18 09:00 12/27/18 10:37 Alfuzosin Hcl [ PO Not Given Alfuzosin Hcl Er] 10 DAILY JOSÉ MIGUEL Mg) Patient Own Med ( 1 each 12/26/18 22:00 12/27/18 05:30 Ketoconazole [ PO Not Given Ketoconazole] 400 Mg TID JOSÉ MIGUEL ) Polyethylene Glycol 17 gm 12/25/18 09:00 12/27/18 10:37 Miralax PO Not Given DAILY JOSÉ MIGUEL Saccharomyces Boulardii 250 mg 12/25/18 17:00 12/27/18 10:30 Florastor PO 250 mg BIDWM JOSÉ MIGUEL Administration Sodium Chloride 10 ml 12/24/18 17:00 12/27/18 08:06 Normal Saline Flush 0.9% IVP 10 ml 0100,0900,1700 JOSÉ MIGUEL Administration Thiamine HCl 100 mg 12/24/18 21:00 12/27/18 10:32 Vitamin B-1 PO 100 mg BID JOSÉ MIGUEL Administration - Lab Result Fish Bone Diagrams: 12/27/18 07:53 12/27/18 07:53 - Additional Planning My Orders: My Active Orders 12/26/18 14:18 BIPAP [BIPAP/CPAP - RT] [RC] Q2H 12/26/18 15:14 BiPAP [BiPAP/CPAP Setting Changes] [RC] ONCE 12/26/18 15:16 Arterial Blood Gases - RT [RC] .ONCE Morphine Inj [Morphine] 2 mg IVP Q2H PRN 12/26/18 16:22 Daily Weight [RC] 0600 12/26/18 16:34 Ampicillin/Sulbactam [Unasyn] 3 gm Sodium Chloride 0.9% Minibag [Normal Saline 0.9% Minibag] 100 ml IV Q6HR 12/26/18 17:00 methylPREDNISolone SUCCINATE [SOLU-Medrol (40MG VIAL)] 80 mg IVP TID 12/26/18 21:00 Fludrocortisone [Florinef] 0.1 mg PO BID 12/27/18 Palliative Care Consult [CONS] Routine 12/27/18 09:00 Metoprolol Succinate [Toprol Xl] 12.5 mg PO DAILY 12/27/18 10:48 LORazepam [Ativan] 0.5 mg PO Q8H PRN 12/27/18 13:36 Brain [Head W/O Stroke Protocol] [CT] Stat 12/27/18 Lunch Soft Mechanical Diet [DIET] 12/28/18 05:00 BMP - BASIC METABOLIC PANEL [CHEM] DAILYLAB 12/28/18 09:00 Chest 1 View X-Ray [XR] DAILY 12/29/18 09:00 Chest 1 View X-Ray [XR] DAILY Subjective - Subjective Patient Reports: Other (L arm feels "numb, like he sat on it" and it feels weak.) Nursing Reports: Other (Patient wants to have discussion about "not surviving".) Objective Vital Signs: Vital Signs - 24 hr 12/26/18 12/26/18 12/26/18 14:45 14:58 16:00 Temperature 35.6 C L Heart Rate 78 Heart Rate [ 78 76 Brachial] Respiratory 30 H 31 H Rate Blood Pressure 123/66 130/70 [Right Brachial artery] O2 Saturation 100 98 12/26/18 12/26/18 12/26/18 16:50 17:00 17:20 Temperature 36.6 C Heart Rate 74 74 Heart Rate [ 77 Brachial] Respiratory 29 H 31 H Rate Blood Pressure 142/75 H [Right Brachial artery] O2 Saturation 98 12/26/18 12/26/18 12/26/18 18:00 19:00 19:16 Temperature Heart Rate 74 Heart Rate [ 75 75 Brachial] Respiratory 28 H 27 H Rate Blood Pressure 125/84 H 130/72 [Right Brachial artery] O2 Saturation 99 94 12/26/18 12/26/18 12/26/18 20:00 21:00 21:13 Temperature 36.8 C Heart Rate 76 Heart Rate [ 97 72 Brachial] Respiratory 35 H 38 H 36 H Rate Blood Pressure 134/68 H 123/62 [Right Brachial artery] O2 Saturation 92 94 12/26/18 12/26/18 12/26/18 21:17 22:00 23:00 Temperature Heart Rate 75 Heart Rate [ 76 98 Brachial] Respiratory 26 H 36 H Rate Blood Pressure 114/65 130/78 [Right Brachial artery] O2 Saturation 94 94 12/27/18 12/27/18 12/27/18 00:00 00:04 01:00 Temperature 36.3 C L Heart Rate 75 Heart Rate [ 73 73 Brachial] Respiratory 35 H 36 H Rate Blood Pressure 124/64 121/65 [Right Brachial artery] O2 Saturation 96 96 12/27/18 12/27/18 12/27/18 02:00 02:12 03:00 Temperature Heart Rate 76 Heart Rate [ 72 74 Brachial] Respiratory 36 H 35 H Rate Blood Pressure 132/63 H 135/57 H [Right Brachial artery] O2 Saturation 95 94 12/27/18 12/27/18 12/27/18 04:00 04:29 05:00 Temperature 36.8 C Heart Rate 78 Heart Rate [ 79 79 Brachial] Respiratory 36 H 33 H Rate Blood Pressure 131/66 H 126/69 [Right Brachial artery] O2 Saturation 94 91 L 12/27/18 12/27/18 12/27/18 05:02 06:00 06:01 Temperature 36.8 C Heart Rate 79 80 Heart Rate [ 96 Brachial] Respiratory 36 H 32 H Rate Blood Pressure 133/72 H [Right Brachial artery] O2 Saturation 94 93 12/27/18 12/27/18 12/27/18 07:00 08:00 08:20 Temperature Heart Rate 77 Heart Rate [ 80 74 Brachial] Respiratory 37 H 35 H Rate Blood Pressure 124/58 L 123/61 [Right Brachial artery] O2 Saturation 92 93 12/27/18 12/27/18 12/27/18 09:00 10:00 10:06 Temperature Heart Rate 77 Heart Rate [ 73 70 Brachial] Respiratory 29 H 30 H 32 H Rate Blood Pressure 119/59 L 122/59 L [Right Brachial artery] O2 Saturation 89 L 91 L 12/27/18 12/27/18 12/27/18 11:00 11:43 12:00 Temperature 36.6 C Heart Rate 84 Heart Rate [ 86 91 Brachial] Respiratory 29 H 22 Rate Blood Pressure 120/60 120/61 [Right Brachial artery] O2 Saturation 91 L 91 L 12/27/18 12/27/18 13:00 13:17 Temperature Heart Rate 75 Heart Rate [ 75 Brachial] Respiratory 27 H Rate Blood Pressure 115/54 L [Right Brachial artery] O2 Saturation 93 Oxygen O2 Source BIPAP Oxygen Flow Rate 3 I&O (Last 24 Hrs): Intake and Output Totals x24h 12/25/18 12/26/18 12/27/18 23:59 23:59 23:59 Intake Total 730 1040.5 630 Output Total 2350 955 510 Balance -1620 85.5 120 General: Alert, Oriented x3 HEENT: Other (Mucosa appears dry, wearing BIPAP mask) Neck: Supple Neuro: Focal Deficits, Other (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, normal shoulder shrug, grossly normal sensory exam.) Cardiovascular: No murmurs Respiratory: Other (Good air movement without rales or wheezing, diminished R base.) Abdomen: Soft Extremities: No edema - Results Results: Laboratory Results WBC 13.8 x10^3/uL (4.8-10.8) H 12/27/18 07:53 RBC 3.84 10^6/uL (4.70-6.10) L 12/27/18 07:53 Hgb 11.0 g/dL (14.0-18.0) L 12/27/18 07:53 Hct 33.3 % (42.0-52.0) L 12/27/18 07:53 MCV 86.6 fL (80.0-94.0) 12/27/18 07:53 MCH 28.7 pg (27.0-31.0) 12/27/18 07:53 MCHC 33.2 g/dL (32.0-36.0) 12/27/18 07:53 RDW 16.7 % (12.0-15.0) H 12/27/18 07:53 Plt Count 171 10^3/uL (130-450) 12/27/18 07:53 MPV 6.7 fL (7.4-11.4) L 12/27/18 07:53 Neut # (Auto) 12.6 10^3/uL (1.5-6.6) H 12/27/18 07:53 Lymph # (Auto) 0.3 10^3/uL (1.5-3.5) L 12/27/18 07:53 Wolfe # (Auto) 0.9 10^3/uL (0.0-1.0) 12/27/18 07:53 Eos # (Auto) 0.0 10^3/uL (0.0-0.7) 12/27/18 07:53 Baso # (Auto) 0.0 10^3/uL (0.0-0.1) 12/27/18 07:53 Absolute Nucleated RBC 0.00 x10^3/uL 12/27/18 07:53 Nucleated RBC % 0.0 /100WBC 12/27/18 07:53 PT 17.4 secs (9.9-12.6) H 12/27/18 04:30 INR 1.5 (0.8-1.2) H 12/27/18 04:30 Bld Gas Analysis Time 1707 12/26/18 16:50 Sample Site LEFT RADIAL 12/26/18 16:50 ABG pH 7.49 (7.35-7.45) H 12/26/18 16:50 ABG pCO2 30 mmHg (34-45) L 12/26/18 16:50 ABG pO2 94 mmHg (80-100) 12/26/18 16:50 ABG HCO3 22.5 mmol/L (22.0-26.0) 12/26/18 16:50 ABG Total CO2 23.4 MMOL/L (21.0-29.0) 12/26/18 16:50 ABG O2 Saturation 97 % (94-98) 12/26/18 16:50 ABG Base Excess -0.1 mmol/L (-2.0-3.0) 12/26/18 16:50 Wolfgang Test POSITIVE 12/26/18 16:50 Respiration Rate 36 b/min 12/26/18 16:50 O2 Delivery Device BiPAP 12/26/18 16:50 O2 Liters/Min 15.00 LPM 12/26/18 14:20 FiO2 100.00 12/26/18 16:50 Tidal Volume 995 mL 12/26/18 16:50 Pressure Support Vent 3 cmH2O 12/26/18 16:50 EPAP 4 cmH2O 12/26/18 16:50 IPAP 7 cmH2O 12/26/18 16:50 Sodium 143 mmol/L (135-145) 12/27/18 07:53 Potassium 3.7 mmol/L (3.5-5.0) 12/27/18 07:53 Chloride 109 mmol/L (101-111) 12/27/18 07:53 Carbon Dioxide 23 mmol/L (21-32) 12/27/18 07:53 Anion Gap 11.0 (6-13) 12/27/18 07:53 BUN 33 mg/dL (6-20) H 12/27/18 07:53 Creatinine 0.7 mg/dL (0.6-1.2) 12/27/18 07:53 Estimated GFR (MDRD) 107 (>89) 12/27/18 07:53 Glucose 165 mg/dL (70-100) H 12/27/18 07:53 Lactic Acid 2.3 mmol/L (0.5-2.2) H 12/26/18 16:20 Calcium 8.6 mg/dL (8.5-10.3) 12/27/18 07:53 Phosphorus 2.5 mg/dL (2.5-4.6) 12/27/18 07:35 Magnesium 2.0 mg/dL (1.7-2.8) 12/24/18 08:24 Total Bilirubin 1.3 mg/dL (0.2-1.0) H 12/24/18 08:24 AST 21 IU/L (10-42) 12/24/18 08:24 ALT 14 IU/L (10-60) 12/24/18 08:24 Alkaline Phosphatase 54 IU/L (42-121) 12/24/18 08:24 Troponin I < 0.04 ng/mL (<0.49) 12/24/18 08:24 B-Natriuretic Peptide 317 pg/mL (5-100) H 12/26/18 11:52 Total Protein 6.7 g/dL (6.7-8.2) 12/24/18 08:24 Albumin 2.8 g/dL (3.2-5.5) L 12/25/18 05:20 Globulin 3.7 g/dL (2.1-4.2) 12/24/18 08:24 Albumin/Globulin Ratio 0.8 (1.0-2.2) L 12/24/18 08:24 Lipase 20 U/L (22-51) L 12/24/18 08:24 TSH 2.91 uIU/mL (0.34-5.60) 12/24/18 08:24 Cortisol 47.2 ug/dL 12/24/18 08:24 Nasal Screen MRSA (PCR) NEGATIVE (NEGATIVE) 12/26/18 21:15 C. difficile Tox B Gene NEGATIVE (NEGATIVE) 12/24/18 08:55 Influenza A (Rapid) Negative (Negative) 12/24/18 09:24 Influenza B (Rapid) Negative (Negative) 12/24/18 09:24 - Procedures Procedures: Procedures REPLACEMENT OF LEFT LENS WITH SYNTH SUB, PERC APPROACH (05/11/16) Sepsis Event Note (H) - Evaluation Current Stage of Sepsis: Ruled out Possible source of Sepsis: positive: Pulmonary
--- NOTE | 2018-12-27 14:22 | ADVANCE CARE PLANNING NOTE ---
Advance Care Planning - Date/Time Date: 12/27/18 Time: 13:00 - Purpose of encounter Text: To establish his wishes regarding aggressiveness of care. To answer his questions and address his concerns regarding his prognosis and end of life. - Parties in attendance Parties in attendance: I spoke to patient at his bedside, and his RN, Kemi James, was on the other side of his bed and participating. - Decisional capacity Decisional capacity of: He has full capacity. - Subjective/Patient's story Subjective/Patient's story: He was born on [facility] and is part of the [place] family who were the original settlers of [facility] [place], they own a farm here. He lives with his , he is worried about how she would survive without him. A daughter and son have visited and seem very supportive. His cancer and its treatment has made him weak over the past year. He has forms that spell out a DNR. If he needed a ventilator temporarily, he said that he would let his doctors use their judgement as to weather to use that. He was told that his prostate cancer, the current pneumonia and even a stroke are all potentially survivable, and I could not estimate a prognosis for him. 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 He was started on empiric iv antibiotics and assessed for possible aspiration and diet did need alteration. Yesterday he got worse with drop in oxygen and was transferred to ICU for BIPAP, which has helped with oxygenation. He has anxiety and has been over-breathing, pulling >1000cc tidal volume. His iv antibiotics were broadened when the CXR showed worsening bilateral infiltrates. Today he awoke with L arm described as "numb" but the sensory exam is normal however the L arm iand hand are weak. - Goals of Care Goals of care determinations: He wishes to treat his condition aggressively, see a Palliative Care provider, and "does not want the [employer] well logging captain to see him here, for personal reasons". - Plan Plan: Will aggressively treat the current bilateral pneumonia. Will obtain a STAT head CT to evaluate the new neurologic change, and manage aggressively if this is an acute CVA. Will start po Ativan prn for anxiety. Will ask for a Palliative Care consult with Ligia Rizzo. Will continue DNR status. - Code Status Code Status: Do Not Attempt Resuscitation - Time Spent on Advance Care Planning Time spent on advance care plannin min
--- NOTE | 2018-12-27 16:39 | CT Report ---
Reason: NEW LT ARM WEAKNESS, EVAL FOR CVA Procedure Date: 12/27/2018 Accession Number: [id number] / [id number] Procedure: CT - HEAD WO CPT Code: FULL RESULT: EXAM: CT HEAD EXAM DATE: 12/27/2018 04:09 PM. CLINICAL HISTORY: NEW LT ARM WEAKNESS, EVAL FOR CVA. COMPARISON: HEAD W/O 09/30/2013 10:38 AM. TECHNIQUE: Multiaxial CT images were obtained from the foramen magnum to the vertex. Reformats: Sagittal and coronal. IV contrast: None. In accordance with CT protocol optimization, one or more of the following dose reduction techniques were utilized for this exam: automated exposure control, adjustment of mA and/or KV based on patient size, or use of iterative reconstructive technique. FINDINGS: Parenchyma: No acute intraparenchymal hemorrhage. No evidence of mass or midline shift. Hsieh-white differentiation is distinct. Mild hypodense changes to the periventricular white matter, which can be seen with chronic small vessel ischemic disease. Extraaxial Spaces: No subdural or epidural collections identified. Ventricles: Normal in size and position. Sinuses and Orbits: Imaged paranasal sinuses, orbits, and mastoids show no significant abnormality. Bones: No evidence of acute fracture or calvarial defect. Advanced degenerative change of the atlantoaxial interval. Other: None. IMPRESSION: No acute intracranial findings. An acute infarct may not be visible by CT. Follow-up examinations recommended as clinically indicated. RADIA The critical test notification system was initiated by Dr. Jeff Lin at 04:33 PM on 12/27/2018. The above critical test findings were discussed with Susanne Rossi by Dr. Jeff Lin at 04:38 PM on 12/27/2018.
[2018-12-27] MEDS: MULTIVITAMIN W/MINERALS TABLET PO SCH (17:00)
[2018-12-27 22:04] LABS: ABG HCO3 24.6 mmol/L (22.0-26.0); ABG PCO2 32 mmHg (34-45); ABG PH 7.51 (7.35-7.45); ABG PO2 54 mmHg (80-100)
[2018-12-27 22:05] LABS: ABG OXYGEN SATURATION 88 % (94-98); ABG TCO2 25.6 MMOL/L (21.0-29.0); ALLEN TEST POSITIVE
[2018-12-28] MEDS: AMPICILLIN/SULBACTAM 3 GM in SODIUM CHLORIDE 0.9% MINIBAG 100 ML IV SCH (00:10)
[2018-12-28] MEDS: SODIUM CHLORIDE FLUSH 0.9% 10 ML SYRINGE IVP SCH (00:11)
[2018-12-28] MEDS: MORPHINE 2 MG/ML SYRINGE IVP PRN (00:20)
[2018-12-28 00:29] VITALS: BP 119/65
[2018-12-28] MEDS ORDERED: GLYCOPYRROLATE 1 MG/5 ML VIAL SUBQ PRN (00:42)
[2018-12-28] MEDS ORDERED: SCOPOLAMINE PATCH TOP SCH (01:00)
[2018-12-28] MEDS ORDERED: MORPHINE 2 MG/ML SYRINGE IVP PRN ×2 (01:00→01:06)
[2018-12-28] MEDS ORDERED: LORazepam 2 MG/ML VIAL IVP PRN (01:00)
[2018-12-28] MEDS ORDERED: MORPHINE PCA 50 MG IV PRN (01:01)
[2018-12-28] MEDS ORDERED: LORazepam 2 MG/ML VIAL ONE (01:12)
--- NOTE | 2018-12-28 06:37 | DISCHARGE SUMMARY ---
Discharge Summary Discharge Date: 12/28/18 Discharge Disposition: 20 - ALLERGIES Allergies/Adverse Reactions: Allergies Allergy/AdvReac Type Severity Reaction Status Date / Time tamsulosin Allergy Dizziness Verified 10/15/18 09:54 clindamycin AdvReac Severe chest pain Verified 10/15/18 09:54 R side KAYLA Inhibitors AdvReac Intermediate unknown - Verified 12/24/18 08:18 appeared in his records - MEDICATIONS Home Medications: Ambulatory Orders Medication Instructions Recorded Confirmed Rosuvastatin Calcium [Crestor] 20 mg PO DAILY 03/29/13 12/24/18 Warfarin [Coumadin] 2.5 - 5 mg PO DAILY 03/29/13 12/24/18 Levothyroxine [Synthroid] 25 mcg PO QDAC 05/10/16 12/24/18 Leuprolide Acetate [Lupron Depot] 3.75 mg IM Q3M 01/09/18 12/24/18 Magnesium Oxide [Magnesium] 400 mg PO DAILY 01/09/18 12/24/18 Albuterol Sulf [Ventolin Hfa 1 - 2 puffs INH Q4HR PRN #1 inhaler 10/15/1812/24 Inhaler] Alfuzosin HCl [Alfuzosin HCl ER] 10 mg PO DAILY 11/13/18 12/24/18 Hydrocortisone 10 mg PO DAILY PM 11/13/18 12/24/18 Hydrocortisone 20 mg PO DAILY 11/13/18 12/24/18 Ketoconazole 400 mg PO TID 11/13/18 12/24/18 Oxybutynin Chloride 5 mg PO DAILY 11/13/18 12/24/18 Metoprolol Succinate 12.5 mg PO DAILY 12/24/18 12/24/18 buPROPion [Wellbutrin Sr] 150 mg PO BID 12/24/18 12/24/18 - LABS Result Diagrams: 12/27/18 07:53 12/27/18 07:53 - SEPSIS Current Stage of Sepsis: Ruled out Possible source of Sepsis: Pulmonary
== END 2018-12-28 01:38 | disposition expired | DRG 189 ==
LOC: EDUNIT# → ED 08:12 → MS2 11:44 → ICU 12-26 14:48
PROVIDERS: ADMIT Family Medicine; ATTEND Internal Medicine
DX: J18.9 Pneumonia, unspecified organism (principal); J96.01 Acute respiratory failure with hypoxia; R11.0 Nausea; J69.0 Pneumonitis due to inhalation of food and vomit; I48.91 Unspecified atrial fibrillation; I50.23 Acute on chronic systolic (congestive) heart failure; I63.9 Cerebral infarction, unspecified; G81.94 Hemiplegia, unspecified affecting left nondominant side; E27.40 Unspecified adrenocortical insufficiency; R19.7 Diarrhea, unspecified; R00.0 Tachycardia, unspecified; I95.9 Hypotension, unspecified; R09.02 Hypoxemia; I25.2 Old myocardial infarction; F32.9 Major depressive disorder, single episode, unspecified; M19.90 Unspecified osteoarthritis, unspecified site; Z95.5 Presence of coronary angioplasty implant and graft; Z96.649 Presence of unspecified artificial hip joint; Z79.02 Long term (current) use of antithrombotics/antiplatelets; E03.9 Hypothyroidism, unspecified; E78.5 Hyperlipidemia, unspecified; I48.2 Chronic atrial fibrillation; I48.0 Paroxysmal atrial fibrillation; I25.10 Atherosclerotic heart disease of native coronary artery without angina pectoris; N18.3 Chronic kidney disease, stage 3 (moderate); F41.9 Anxiety disorder, unspecified; Z51.5 Encounter for palliative care; K52.9 Noninfective gastroenteritis and colitis, unspecified; E86.0 Dehydration; E87.6 Hypokalemia; Z66 Do not resuscitate; I95.1 Orthostatic hypotension; D50.9 Iron deficiency anemia, unspecified
CPT/HCPCS: 36415; 36600; 70450; 71045; 76604; 80048; 80053; 80069; 82533; 82803; 83605; 83690; 83735; 83880; 84100; 84443; 84484; 85025; 85610; 87040; 87045; 87046; 87150; 87275; 87276; 87493; 92526; 93005; 93306; 94640; 94660; 96361; 96374; 96375; 97162; 97167; 97530; 99284; A9270; J1650; J2060; J2270; J3490; J7040